=== PATIENT | female | born 1990 | race Caucasian/White ===

== ENCOUNTER 2017-11-22 10:04 | Inpatient (IN) ==
--- NOTE | 2017-11-22 10:37 | Emergency Department Note ---
Disposition Clinical Impression: Suicidal ideation Disposition: Still a Patient Condition: Fair Referrals: Joon Sharma MD [Primary Care Provider] - Forms: ED Satisfaction Letter Psych HPI - General Chief Complaint: ED Psychiatric Symptoms Stated Complaint: SI Time Seen by Provider: 11/22/17 10:10 Source: patient Nursing Notes Reviewed: Yes Vital Signs Reviewed: Yes - History of Present Illness HPI Narrative: 27 YO F here for SI with history of IBS. She states she has had SI with plan since Monday. She states work has been stressful and says she had a difficult discussion with her managers a couple weeks ago. She was planning to step into traffic. She has never been formally diagnosed with or treated for a mental illness. Never seen a psychiatrist. Patient denies hurting herself in this recent episode. Patient had a similar eposide of SI 1 year ago however she did not seek medical help at that time. She has been feeling episodes of feeling down ever since she was a teenager. Denies N/V, fever, headache, CP, palpatiations, SOB or dyspnea, changes in bowel movements, changes in urination. She was admitted to ED with her sister. - Related Data Home Medications Medication Instructions Recorded Confirmed Advil 11/07/17 Previous Rx's Medication Instructions Recorded GuaiFENesin/Dextromethorphan 5 ml PO Q6HR PRN #120 syrup 11/07/17 [Robitussin/DM] Loratadine/Pseudophed (12 HR) 1 each PO BID #20 tab.er.12h 11/07/17 [Claritin D (12HR)] Allergies Allergy/AdvReac Type Severity Reaction Status Date / Time Hydromorphone [From Dilaudid] Allergy Hives Verified 11/22/17 10:07 NSAIDS (Non-Steroidal AdvReac Fatigued Verified 11/22/17 10:07 Anti-Inflamma Constitutional: Reports: as per HPI. Denies: fever, chills, weakness, night sweats Cardiovascular: Denies: chest pain, palpitations Respiratory: Denies: cough, dyspnea Gastrointestinal: Denies: abdominal pain, nausea, vomiting Genitourinary: Denies: urgency, dysuria, frequency Neurological: Denies: headache, weakness Psychiatric: Reports: depression, suicidal thoughts. Denies: anxiety, auditory hallucinations, visual hallucinations Past Medical History - Past Medical History Medical history: Reports: no medical history, other Surgical history: Reports: no surgical history, other Psychiatric history: Reports: no psych history WEATHERIZATION INSTALLER history: Reports: no WEATHERIZATION INSTALLER history - Social History Smoking Status: Never smoker Smokeless Tobacco Status: No Alcohol use: Reports: none Drug use: Reports: none Physical Exam - General Limitations: no limitations General appearance: alert, in no apparent distress - Chest Chest inspection: Present: normal inspection, symmetric chest wall rise - Respiratory Respiratory exam: Present: normal lung sounds bilaterally. Absent: respiratory distress - Cardiovascular Cardiovascular exam: Present: regular rate, normal rhythm, normal heart sounds - Neurological Exam Neurological exam: Present: alert, oriented X3 - Psychiatric Psychiatric exam: Present: depressed, anxious. Absent: agitated Course Course Narrative: 27 YO F here for SI with plan. Ordered UDS, BAL, urinalysis. Will call 1A when labs are back. - Reevaluation(s) Reevaluation #1: Patient has headache and states she usually take ibuprofen at home despite having NSAID allergy listed on chart. Will give Ibuprofen 400. Spoke to 1A and they will see her. Reevaluation #2: 1A saw patient and they will commit patient. Vital Signs Temperature 97.9 F 11/22/17 10:05 Pulse Rate 104 11/22/17 10:05 Respiratory Rate 16 11/22/17 10:05 Blood Pressure 167/110 11/22/17 10:05 O2 Sat by Pulse Oximetry 99 11/22/17 10:05 Temperature 97.6 F 11/22/17 12:13 Pulse Rate 81 11/22/17 12:13 Respiratory Rate 16 11/22/17 12:13 Blood Pressure 123/85 11/22/17 12:13 O2 Sat by Pulse Oximetry 99 11/22/17 12:13 Oxygen Delivery Oxygen Delivery Nasal Cannula Psych - MDM Narrative Medical decision making narrative: 1500 hrs.: 1A has evaluated the patient to keep her and admit her. Patient's agreement with plan. 72 hold form completed for her. Impression is suicidal ideations and depression. New-onset. - Lab Data Lab Results 11/22/17 11/22/17 11/22/17 Range/Units 10:33 10:40 11:15 Urine Color Dark Yellow (Yellow) Urine Clarity Cloudy A (Clear) Urine pH 5.0 (5.0-8.0) pH Units Ur Specific [place] > 1.030 H (1.010-1.025) Urine Protein Negative (Neg-Trace) mg/dL Urine Glucose (UA) Normal (Normal) mg/dL Urine Ketones Negative (Negative) mg/dL Urine Blood Negative (Negative) Urine Nitrite Negative (Negative) Urine Bilirubin Small H (Negative) Urine Urobilinogen Normal (Normal) mg/dL Ur Leukocyte Esterase Moderate H (Negative) Urine Microscopic RBC 3-5 H (0-3) per hpf Urine Microscopic WBC 50-100 H (0-3) per hpf Ur Squamous Epith Cells Many H (None-Few) per lpf Urine Bacteria Many H (None-Few) per hpf Urine Opiates Screen Negative (Pywxda=340) ng/mL Ur Barbiturates Screen Negative (Sjutsr=551) ng/mL Ur Phencyclidine Scrn Negative (Cutoff=25) ng/mL Ur Amphetamines Screen Negative (Nvfynu=2577) ng/mL U Benzodiazepines Scrn Negative (Zuekxp=024) ng/mL Urine Cocaine Screen Negative (Cutoff= 300) ng/mL U Marijuana (THC) Screen Negative (Cutoff = 50) ng/mL Ur Drug Screen Interp See Below Ethyl Alcohol < 10 (Less than 10) mg/dL Psychiatric Medical Clearance - Medical Clearance Checklist Medical History: No Social History Section defined Current Vitals: Last Vital Signs Temp 97.6 F 11/22/17 12:13 Pulse 81 11/22/17 12:13 Resp 16 11/22/17 12:13 BP 123/85 11/22/17 12:13 Pulse Ox 99 11/22/17 12:13 Psychiatric Lab Panel: Drug Levels and Toxicity 11/22/17 11/22/17 10:40 11:15 Urine Opiates Screen Negative Ur Barbiturates Screen Negative Ur Phencyclidine Scrn Negative Ur Amphetamines Screen Negative U Benzodiazepines Scrn Negative Urine Cocaine Screen Negative U Marijuana (THC) Screen Negative Ethyl Alcohol < 10 Abnormal Labs: Abnormal lab results Urine Clarity Cloudy (Clear) A 11/22/17 10:33 Ur Specific [place] > 1.030 (1.010-1.025) H 11/22/17 10:33 Urine Bilirubin Small (Negative) H 11/22/17 10:33 Ur Leukocyte Esterase Moderate (Negative) H 11/22/17 10:33 Urine Microscopic RBC 3-5 per hpf (0-3) H 11/22/17 10:33 Urine Microscopic WBC 50-100 per hpf (0-3) H 11/22/17 10:33 Ur Squamous Epith Cells Many per lpf (None-Few) H 11/22/17 10:33 Urine Bacteria Many per hpf (None-Few) H 11/22/17 10:33 Statement of Medical Clearance: I have evaluated the patient, reviewed diagnostic information, and certify that the patient's medical condition is sufficiently stable that transfer to the psychiatric unit does not pose a significant risk of deterioration. Attestation Statement - Attestation Attestation: This documentation is done with the assistance of Dragon dictation. Despite efforts made to ensure accuracy, there may be inaccuracies in refrigeration plant cork insulator or spelling and typographical errors. I examined this patient and my medical decision-making was reviewed with the Resident Physician. I agree with the documented findings, disposition and treatment plan as described except to the extent set forth below. Patient seen and evaluated on arrival with Dr. Valdez myself, agree with his evaluation and management plan, supervise care the patient's stay. Patient's had suicidal ideations and some depression. She is really have a plan at this time but she said she thought about jumping out in front of traffic. She is coming by family now she is tearful but is cooperative. Flat effect. We will check a urine drug screen and alcohol per psychiatric criteria and then speak with 1A for evaluation.
[2017-11-22 11:28] LABS: Bilirubin,Urine Small (Negative); Blood,Urine Negative (Negative); Clarity,Urine Cloudy (Clear); Color,Urine Dark Yellow (Yellow); Glucose,Urine (UA) Normal (Normal); Ketones,Urine Negative (Negative); Leukocyte Esterase,Urine Moderate (Negative); Nitrite,Urine Negative (Negative); Protein,Urine Negative (Neg-Trace); Specific Gravity,Urine > 1.030 (1.010-1.025); Urobilinogen,Urine Normal (Normal)
[2017-11-22 11:29] LABS: Squamous Epithelial Cell,Urine Many per lpf (None-Few); WBC,Urine 50-100 per hpf (0-3)
[2017-11-22 11:36] LABS: Amphetamine Screen,Urine Negative ng/mL (Cutoff=1000); Barbiturate Screen,Urine Negative ng/mL (Cutoff=200); Benzodiazepines Screen,Urine Negative ng/mL (Cutoff=200); Cannabinoid Screen,Urine Negative ng/mL (Cutoff = 50); Cocaine Screen,Urine Negative ng/mL (Cutoff= 300); Opiate Screen,Urine Negative ng/mL (Cutoff=300); Phencyclidine Screen,Urine Negative ng/mL (Cutoff=25)
[2017-11-22 11:47] LABS: Bacteria,Urine Many per hpf (None-Few)
[2017-11-22] MEDS ORDERED: Ibuprofen 400 MG TABLET PO ONE (12:04)
[2017-11-22] MEDS ORDERED: Haloperidol Lactate 5 MG/ML VIAL IM PRN (17:59)
[2017-11-22] MEDS ORDERED: MOM Conc 10 ML UD.LIQ PO PRN (17:59)
[2017-11-22] MEDS ORDERED: Mag Hydrox/Al Hydrox/Simeth 30 ML UDC PO PRN (17:59)
[2017-11-22] MEDS ORDERED: hydrOXYzine pamoate 25 MG CAPSULE PO PRN (17:59)
[2017-11-22] MEDS ORDERED: *HR* LORazepam 2 MG/ML VIAL IM PRN (17:59)
[2017-11-22] MEDS ORDERED: *HR* LORazepam 1 MG TABLET PO PRN (17:59)
[2017-11-22] MEDS ORDERED: Acetaminophen 325 MG TABLET PO PRN (17:59)
--- NOTE | 2017-11-23 11:14 | Psychiatry History & Physical ---
Date of Encounter: 11/23/17 Time of Encounter: 11:00 History of Present Illness Patient Stated Chief Complaint: Suicidal ideation Medicare Admission Attestation: For traditional Medicare patients the provided hospital inpatient services are reasonable and necessary and in the case of services not specified as inpatient -only under 42 CFR 419.22 (n), that they are appropriately provided as inpatient services in accordance 42 CFR 412.3. For Critical Access Hospital the patient may reasonably be expected to be discharged or transferred to a hospital within 96 hours after admission to the Critical Access Hospital. Admitted From: Emergency Dept History of Present Illness: Ms. Munroe is a 27 year old female admitted from the emergency department for suicidal ideation. Patient was thinking about walking into traffic to kill herself, and she was wishing not to wake up in the morning. She reported this feeling has been going on for about 2 or 3 weeks and recently was triggered by stress at work when she was given additional responsibilities. She reports low self-esteem and she blames herself for everything that goes wrong. She complained of poor sleep, and anxiety in public places and an anxiety in new places or situation. She denies smoking or using drugs or alcohol. She is regular churchgoer and enjoy activities at [employer]. 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 Family history is significant for mother who is bipolar and a father who is alcoholic. Patient had no previous mental health's treatment or hospitalization. Past Med Surg Social Fam HX - Past Medical History Medical history: no medical history, other - Past Psychiatric History Psychiatric history: Reports: no psych history - Past Surgical History Surgical History: no surgical history, other - Social History Smoking Status: Never smoker Smokeless Tobacco Status: No Alcohol use: none Drug use: none - Family History Mother Adopted: Yes Name: Radha Munroe Family Member Ethnicity: Non- Living Status: Still Living Hx Family Cardiac Disorders: No Hx Family Respiratory Disorders: Yes (COPD smoker) Hx Family Cancer: No Hx Family GI Disorders: No Hx Family Genitourinary Disorders: No Hx Family Endocrine Disorder: Yes (Type 2 DM) Hx Family Musculoskeletal Disorders: No Hx Family Neuromuscular Disorders: No Hx Family Neurologic Disorders: No Hx Family HEENT Disorders: No Hx Family Autoimmune Disorders: No Hx Family Reproductive Disorders: Yes (Hysterectomy) Hx Family Psychosocial Disorders: Yes (Bipolar, depression) Hx Family Medical Disorders: No Medications & Allergies Unable To Obtain [Unable to Obtain] 11/22/17 [History] 3 Allergy/AdvReac Type Severity Reaction Status Date / Time Hydromorphone [From Dilaudid] Allergy Hives Verified 11/22/17 10:07 NSAIDS (Non-Steroidal AdvReac Fatigued Verified 11/22/17 10:07 Anti-Inflamma Review of Systems Psychiatric: Reports: depression, anxiety, abnormal sleep pattern, suicidal ideation Exam - HEENT Head exam IM: Present: atraumatic Eye exam IM: Present: EOMI, normal appearance, PERRL ENT exam IM: Present: normal exam - Neurological Neurological exam: Present: CN II-XII intact - Respiratory Respiratory exam IM: Present: CTAB - GI/Abdominal GI/Abdominal exam IM: Present: normal bowel sounds, soft. Absent: tenderness - Extremities Extremities exam IM: Present: full ROM - Skin Skin exam IM: Present: dry, warm - Constitutional Vitals: Temp Pulse Resp BP Pulse Ox 97.8 F 98 20 149/89 99 11/23/17 09:00 11/23/17 09:00 11/23/17 09:00 11/23/17 09:00 11/22/17 12:13 General appearance: age & developmentally appropriate, well-groomed, well- nourished, obese - Musculoskeletal Gait: normal Station: relaxed Strength & Tone: normal for patient - Psychiatric Patient Orientation: Yes Person, Yes Time, Yes Place Level of alertness: Alert Behavior: calm, cooperative Psychomotor activity: Normal Eye Contact: Maintains Eye Contact Mood Description: Euthymic/stable Affect description: congruent with mood, full range Speech Volume: Normal Speech pattern: normal rate, normal rhythm, normal tone, fluent, spontaneous Language & Vocabulary: consistent with education Thought Process: Linear, Goal Oriented Thought Content: Yes Suicidal ideation, No Homicidal ideation, No Overt delusions, Yes Obsessive thoughts Perceptual Disturbances: No Auditory hallucinations, No Visual hallucinations Attention Span Ability: Capable of Focused Attention Memory Description: Grossly Intact Patient Reliability: Reliable Historian Fund of knowledge: Yes abstraction ability, Yes average, Yes aware of current events Intelligence Estimate: Average Judgment: Limited Insight: Partial Results - Labs Labs: Laboratory Last Values Urine Color Dark Yellow (Yellow) 11/22/17 10:33 Urine Clarity Cloudy (Clear) A 11/22/17 10:33 Urine pH 5.0 pH Units (5.0-8.0) 11/22/17 10:33 Ur Specific [place] > 1.030 (1.010-1.025) H 11/22/17 10:33 Urine Protein Negative mg/dL (Neg-Trace) 11/22/17 10:33 Urine Glucose (UA) Normal mg/dL (Normal) 11/22/17 10:33 Urine Ketones Negative mg/dL (Negative) 11/22/17 10:33 Urine Blood Negative (Negative) 11/22/17 10:33 Urine Nitrite Negative (Negative) 11/22/17 10:33 Urine Bilirubin Small (Negative) H 11/22/17 10:33 Urine Urobilinogen Normal mg/dL (Normal) 11/22/17 10:33 Ur Leukocyte Esterase Moderate (Negative) H 11/22/17 10:33 Urine Microscopic RBC 3-5 per hpf (0-3) H 11/22/17 10:33 Urine Microscopic WBC 50-100 per hpf (0-3) H 11/22/17 10:33 Ur Squamous Epith Cells Many per lpf (None-Few) H 11/22/17 10:33 Urine Bacteria Many per hpf (None-Few) H 11/22/17 10:33 Urine Opiates Screen Negative ng/mL (Hqlxog=406) 11/22/17 11:15 Ur Barbiturates Screen Negative ng/mL (Gulysl=954) 11/22/17 11:15 Ur Phencyclidine Scrn Negative ng/mL (Cutoff=25) 11/22/17 11:15 Ur Amphetamines Screen Negative ng/mL (Tjvpsm=8126) 11/22/17 11:15 U Benzodiazepines Scrn Negative ng/mL (Mxjrbh=686) 11/22/17 11:15 Urine Cocaine Screen Negative ng/mL (Cutoff= 300) 11/22/17 11:15 U Marijuana (THC) Screen Negative ng/mL (Cutoff = 50) 11/22/17 11:15 Ur Drug Screen Interp See Below 11/22/17 11:15 Ethyl Alcohol < 10 mg/dL (Less than 10) 11/22/17 10:40 Assessment and Plan (1) Suicidal ideation Current visit: Yes Status: Acute Plan: Admit inpatient for safety and stabilization, Close observation, Suicide Precautions per unit protocol, Encourage participation in unit milieu, Group Therapy, Monitor sleep, Monitor appetite Additional Plan: Citalopram 20 mg daily. Benefits side effects were discussed patient is agreeable to start and will monitor Risks, benefits, side effects, alternatives discussed w/pt: Yes Patient agreeable to treatment: Yes Estimated Length of Stay (Days): 3
[2017-11-23] MEDS: traZODone 50 MG TABLET PO PRN (20:49)
--- NOTE | 2017-11-24 11:12 | Psychiatry Progress Note ---
Date of Encounter: 11/24/17 Time of Encounter: 11:10 Subjective Interval history: Patient seen for follow-up. Case discussed with treatment team. Patient reports feeling better, reports improved sleep. She participated in groups and activities and enjoy the interaction. She tolerated medication and denied any side effects. She is motivated and interested in learning more about her treatment goals and how to prevent episodes of depression. Denied any suicidal thoughts. Review of Systems Psychiatric: Reports: depression, anxiety, abnormal sleep pattern, suicidal ideation Results - Vital Signs Vital Signs: Temp Pulse Resp BP Pulse Ox 97.3 F L 109 16 129/89 99 11/24/17 09:00 11/24/17 09:00 11/24/17 09:11/24/17 09:11/22/17 12:13 Assessment and Plan (1) Suicidal ideation Current visit: Yes Status: Acute Plan: Continue hospitalization, Close observation, Suicide Precautions per unit protocol, Encourage participation in unit milieu, Group Therapy, Monitor sleep, Monitor appetite Risks, benefits, side effects, alternatives discussed w/pt: Yes Patient agreeable to treatment: Yes Consult Discharge Plan - Plan Referrals: [facility] [Outside] - 11/30/17 8:00 am (The above appointment is with Dr. Sharma for primary health care and medication management services.) Taras Soto [Outside] - 11/28/17 10:30 am (The above appointment is with Giles Grajeda for outpatient mental health counseling services. These bring her photo ID, insurance card and medication list with you to this appointment.) Psychiatry Exam - Constitutional Vitals: Temp Pulse Resp BP Pulse Ox 97.3 F L 109 16 129/89 99 11/24/17 09:00 11/24/17 09:00 11/24/17 09:11/24/17 09:00 11/22/17 12:13 General appearance: age & developmentally appropriate, well-groomed, well- nourished, obese - Musculoskeletal Gait: normal Station: relaxed Strength & Tone: normal for patient - Psychiatric Patient Orientation: Yes Person, Yes Time, Yes Place Level of alertness: Alert Behavior: calm, cooperative, withdrawn Psychomotor activity: Normal Eye Contact: Maintains Eye Contact Mood Description: Euthymic/stable, Depressed Affect description: congruent with mood, euthymic Speech Volume: Normal Speech pattern: normal rate, normal rhythm, normal tone, fluent, limited Language & Vocabulary: consistent with education Thought Process: Linear, Goal Oriented Thought Content: No Suicidal ideation, No Homicidal ideation, No Overt delusions Perceptual Disturbances: No Auditory hallucinations, No Visual hallucinations Attention Span Ability: Capable of Focused Attention Memory Description: Grossly Intact Patient Reliability: Reliable Historian Fund of knowledge: Yes abstraction ability, Yes aware of current events Intelligence Estimate: Average Judgment: Limited Insight: Partial
[2017-11-24] MEDS: traZODone 50 MG TABLET PO PRN (20:15)
[2017-11-25 08:26] VITALS: BP 150/88
--- NOTE | 2017-11-25 08:34 | Discharge Summary ---
Date of Encounter: 11/25/17 Time of Encounter: 08:32 Diagnosis - Discharge Diagnosis (1) Major depress dis, severe Status: Acute Medications - Discharge Medications Prescriptions: Citalopram [CeleXA] 20 mg PO DAILY #7 tablet traZODone [TraZODone] 50 mg PO HS PRN #7 tablet PRN Reason: Insomnia Citalopram [CeleXA] 20 mg PO DAILY #7 tablet 11/25/17 [Rx] traZODone [TraZODone] 50 mg PO HS PRN #7 tablet 11/25/17 [Rx] 3 Allergy/AdvReac Type Severity Reaction Status Date / Time Hydromorphone [From Dilaudid] Allergy Hives Verified 11/22/17 10:07 NSAIDS (Non-Steroidal AdvReac Fatigued Verified 11/22/17 10:07 Anti-Inflamma Provider Date of admission: 11/22/17 15:16 Primary care physician: PCP NONE Discharging clinician: Dalila Ng Psychiatry Exam - Constitutional Vitals: Temp Pulse Resp BP Pulse Ox 98.6 F 81 16 150/88 99 11/25/17 08:25 11/25/17 08:25 11/25/17 08:25 11/25/17 08:25 11/22/17 12:13 General appearance: age & developmentally appropriate, well-groomed, well- nourished - Musculoskeletal Gait: normal Station: relaxed Strength & Tone: normal for patient - Psychiatric Patient Orientation: Yes Person, Yes Time, Yes Place Level of alertness: Alert Behavior: calm, cooperative Psychomotor activity: Normal Eye Contact: Maintains Eye Contact Mood Description: Euthymic/stable Affect description: congruent with mood, full range Speech Volume: Normal Speech pattern: normal rate, normal rhythm, normal tone, fluent, spontaneous Language & Vocabulary: consistent with education Thought Process: Linear, Goal Oriented Thought Content: No Suicidal ideation, No Homicidal ideation, No Overt delusions Perceptual Disturbances: No Auditory hallucinations, No Visual hallucinations Attention Span Ability: Capable of Focused Attention Memory Description: Grossly Intact Patient Reliability: Reliable Historian Fund of knowledge: Yes abstraction ability, Yes aware of current events Intelligence Estimate: Average Judgment: Fair Insight: Partial Hospital Course Hospital course: Ms. Munroe is a 27 year old female who was admitted secondary to SI. Client reports she has had a passive wish off and on for a large part of her life but that this was the first time she seriously contemplated suicide. No prior hospitalizations, suicide attempts, or linkage. Started on Celexa with positive results. Linked with services. Has follow up in place for next week. Will be living with mother who is supportive. Safety planning done. Client is denying any further thoughts of suicide. Has been social and interacting appropriately with peers on the unit. Mood stable. Bright affect. Future oriented. - Time Spent with Patient Total time spent providing and/or coordinating discharge services: Assessment and Plan - Patient/Caregiver Discharge Instructions Activity: resume usual activities as tolerated Diet: regular diet - Follow up Plan Follow up with: [facility] Shy Wade [Outside] - 11/30/17 8:00 am (The above appointment is with Dr. Sharma for primary health care and medication management services.) Taras Soto [Outside] - 11/28/17 10:30 am (The above appointment is with Giles Grajeda for outpatient mental health counseling services. These bring her photo ID, insurance card and medication list with you to this appointment.) Functional capacity at discharge: independent ambulation Overall status at discharge: Stable Disposition: Home, Self-Care Quality - Multiple Antipsychotics Patient discharged on 2 or more antipsychotic medications: No Procedures - Procedures Procedures: Medication Management, Crisis Stabilization, Supportive Therapy, Group Therapy
== END 2017-11-25 11:35 | disposition home or self-care (01) | DRG 754 ==
LOC: EMEROOARM 10:04 → 1ANU 15:16
PROVIDERS: ADMIT Psychiatry & Neurology Psychiatry; ATTEND Psychiatry & Neurology Psychiatry

== ENCOUNTER 2018-02-28 15:17 | Inpatient (IN) ==
[2018-02-28 15:59] LABS: Bilirubin,Urine Negative (Negative); Blood,Urine Negative (Negative); Clarity,Urine Cloudy (Clear); Color,Urine Yellow (Yellow); Glucose,Urine (UA) Normal (Normal); Ketones,Urine Negative (Negative); Leukocyte Esterase,Urine Large (Negative); Nitrite,Urine Negative (Negative); Protein,Urine Negative (Neg-Trace); Specific Gravity,Urine 1.025 (1.010-1.025); Urobilinogen,Urine Normal (Normal)
[2018-02-28 16:01] LABS: Bacteria,Urine Few per hpf (None-Few); Hyaline Casts,Urine None Seen per lpf (None-Few); RBC,Urine 0-3 per hpf (0-3); Squamous Epithelial Cell,Urine Many per lpf (None-Few); WBC,Urine 15-30 per hpf (0-3)
--- NOTE | 2018-02-28 16:14 | Emergency Department Note ---
Disposition Clinical Impression: Suicidal ideation Disposition: Admitted As Inpatient Condition: Fair Time of Disposition: 21:34 Psych HPI - General Chief Complaint: ED Psychiatric Symptoms Stated Complaint: SI Time Seen by Provider: 02/28/18 15:32 Source: patient Nursing Notes Reviewed: Yes Vital Signs Reviewed: Yes - History of Present Illness HPI Narrative: 27-year-old female presents from home with mother bedside for evaluation of suicidal ideation. His been worsening over the last several days. Patient does have a plan-she intends to overdose on her prescription medications. She did take her prescription medications as prescribed today; she did not take an excess or overdose of these medications prior to arrival. No alcohol or illicit substances. Patient notes that, in the past, she is had previous prolonged episodes of suicidal ideation with a plan however she has never attempted suicide because she always came to this emergency Department before things became that severe. Patient has no other complaints at this time. ROS: Positive: As above Negative: Fever, chills, nausea, vomiting, chest pains, palpitations, abdominal pain, change of bowel or bladder habits. - Related Data Home Medications Medication Instructions Recorded Confirmed HydrOXYzine Pamoate [Vistaril] 25 mg PO BID 01/31/18 02/28/18 ARIPiprazole [Abilify] 10 mg PO DAILY 02/28/18 02/28/18 Venlafaxine [Effexor] 37.5 mg PO BID 02/28/18 02/28/18 traZODone [TraZODone] 50 mg PO HS 02/28/18 02/28/18 Allergies Allergy/AdvReac Type Severity Reaction Status Date / Time Hydromorphone [From Dilaudid] Allergy Hives Verified 02/28/18 15:22 NSAIDS (Non-Steroidal AdvReac Fatigued Verified 02/28/18 15:22 Anti-Inflamma All systems ED: reviewed and negative except as stated. 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 Head: atraumatic, normocephalic Eye: normal appearance, PERRL, EOMI, no scleral icterus, no conjunctival injection ENT: mucous membranes moist, normal external ear exam Neck: normal inspection, trachea midline, full ROM Chest: normal inspection, symmetric chest rise Respiratory: Good respiratory effort. Bilateral breath sounds are clear without wheezing, crackles, or rhonchi. Cardiovascular: Regular rate and rhythm. No clicks, rubs, gallops, or murmors. Normal heart sounds. Abdomen: Bowel sounds present normoactive. Abdomen is soft, nondistended, and nontender. No guarding or rebound. No organomegaly noted. Musculoskeletal: Spontaneously moving all extremities. Skin: warm, dry, intact. Neuro: GCS 15. No focal neurologic deficits observed. Psych: Patient's affect is appropriate for situation. - General Limitations: no limitations General appearance: alert, in no apparent distress Course Course Narrative: Patient is well-appearing, pleasant, cooperative. Will attempt medical clearance. Patient is medically cleared. Mental health services was consulted and is accepting the patient. No additional recommendations at this time. Vital Signs Temperature 97.5 F L 02/28/18 15:19 Pulse Rate 90 02/28/18 15:19 Respiratory Rate 16 02/28/18 15:19 Blood Pressure 134/90 02/28/18 15:19 O2 Sat by Pulse Oximetry 98 02/28/18 15:19 Temperature 97.9 F 02/28/18 20:00 Pulse Rate 89 02/28/18 20:00 Respiratory Rate 16 02/28/18 20:00 Blood Pressure 149/93 02/28/18 20:00 O2 Sat by Pulse Oximetry 99 02/28/18 20:00 Oxygen Delivery Oxygen Delivery Room Air Psych - Lab Data Result diagrams: 02/28/18 16:06 02/28/18 16:06 Lab Results 02/28/18 02/28/18 02/28/18 Range/Units 15:44 15:44 15:44 WBC (4.3-11.1) K/mcL RBC (3.82-4.97) M/mcL Hgb (11.5-15.4) g/dL Hct (35.3-44.9) % MCV (83.0-100.0) fL MCH (28.0-33.3) pg MCHC (31.6-35.5) g/dL RDW (11.5-14.5) % Plt Count (140-400) K/mcL MPV (9.4-12.4) fL Immature Gran % (0-4) % Seg Neutrophils % % Lymphocytes % % Monocytes % % Eosinophils % % Basophils % % Neutrophils # (1.6-8.9) K/mcL Lymphocytes # (0.6-4.6) K/mcL Monocytes # (0.0-1.3) K/mcL Eosinophils # (0.0-0.6) K/mcL Basophils # (0.0-0.2) K/mcL Sodium (136-145) mEq/L Potassium (3.5-5.1) mEq/L Chloride (98-107) mEq/L Carbon Dioxide (23-29) mEq/L BUN (6-20) mg/dL Creatinine (0.60-1.20) mg/dL Est GFR ( Amer) (> 60) Est GFR (Non-Af Amer) (> 60) BUN/Creatinine Ratio (6-26) Glucose (70-105) mg/dL Calculated Osmolality (280-300) Calcium (8.6-10.3) mg/dL Urine Color Yellow (Yellow) Urine Clarity Cloudy A (Clear) Urine pH 6.0 (5.0-8.0) pH Units Ur Specific [place] 1.025 (1.010-1.025) Urine Protein Negative (Neg-Trace) mg/dL Urine Glucose (UA) Normal (Normal) mg/dL Urine Ketones Negative (Negative) mg/dL Urine Blood Negative (Negative) Urine Nitrite Negative (Negative) Urine Bilirubin Negative (Negative) Urine Urobilinogen Normal (Normal) mg/dL Ur Leukocyte Esterase Large H (Negative) Urine Microscopic RBC 0-3 (0-3) per hpf Urine Microscopic WBC 15-30 H (0-3) per hpf Ur Squamous Epith Cells Many H (None-Few) per lpf Urine Bacteria Few (None-Few) per hpf Hyaline Casts None Seen (None-Few) per lpf Urine Test Negative (Negative) Salicylates (15.0-30.0) mg/dL Urine Opiates Screen Negative (Prhwxs=675) ng/mL Acetaminophen (10-20) mcg/mL Ur Barbiturates Screen Negative (Lfhgsl=338) ng/mL Ur Phencyclidine Scrn Negative (Cutoff=25) ng/mL Ur Amphetamines Screen Negative (Wawzay=5381) ng/mL U Benzodiazepines Scrn Negative (Xzjdav=726) ng/mL Urine Cocaine Screen Negative (Cutoff= 300) ng/mL U Marijuana (THC) Screen Negative (Cutoff = 50) ng/mL Ur Drug Screen Interp See Below Ethyl Alcohol (Less than 10) mg/dL 02/28/18 02/28/18 Range/Units 16:06 16:06 WBC 5.5 (4.3-11.1) K/mcL RBC 4.47 (3.82-4.97) M/mcL Hgb 13.1 (11.5-15.4) g/dL Hct 40.0 (35.3-44.9) % MCV 89.5 (83.0-100.0) fL MCH 29.3 (28.0-33.3) pg MCHC 32.8 (31.6-35.5) g/dL RDW 13.2 (11.5-14.5) % Plt Count 258 (140-400) K/mcL MPV 10.4 (9.4-12.4) fL Immature Gran % 2.2 (0-4) % Seg Neutrophils % 43.3 % Lymphocytes % 39.4 % Monocytes % 12.4 % Eosinophils % 2.0 % Basophils % 0.7 % Neutrophils # 2.4 (1.6-8.9) K/mcL Lymphocytes # 2.2 (0.6-4.6) K/mcL Monocytes # 0.7 (0.0-1.3) K/mcL Eosinophils # 0.1 (0.0-0.6) K/mcL Basophils # 0.0 (0.0-0.2) K/mcL Sodium 138 (136-145) mEq/L Potassium 3.8 (3.5-5.1) mEq/L Chloride 107 (98-107) mEq/L Carbon Dioxide 24 (23-29) mEq/L BUN 12 (6-20) mg/dL Creatinine 0.74 (0.60-1.20) mg/dL Est GFR ( Amer) > 60 (> 60) Est GFR (Non-Af Amer) > 60 (> 60) BUN/Creatinine Ratio 16 (6-26) Glucose 81 (70-105) mg/dL Calculated Osmolality 285 (280-300) Calcium 8.8 (8.6-10.3) mg/dL Urine Color (Yellow) Urine Clarity (Clear) Urine pH (5.0-8.0) pH Units Ur Specific [place] (1.010-1.025) Urine Protein (Neg-Trace) mg/dL Urine Glucose (UA) (Normal) mg/dL Urine Ketones (Negative) mg/dL Urine Blood (Negative) Urine Nitrite (Negative) Urine Bilirubin (Negative) Urine Urobilinogen (Normal) mg/dL Ur Leukocyte Esterase (Negative) Urine Microscopic RBC (0-3) per hpf Urine Microscopic WBC (0-3) per hpf Ur Squamous Epith Cells (None-Few) per lpf Urine Bacteria (None-Few) per hpf Hyaline Casts (None-Few) per lpf Urine Test (Negative) Salicylates < 2.5 L (15.0-30.0) mg/dL Urine Opiates Screen (Pstzjb=563) ng/mL Acetaminophen < 10 L (10-20) mcg/mL Ur Barbiturates Screen (Tflfxr=692) ng/mL Ur Phencyclidine Scrn (Cutoff=25) ng/mL Ur Amphetamines Screen (Mwaxqa=5586) ng/mL U Benzodiazepines Scrn (Uvicvs=211) ng/mL Urine Cocaine Screen (Cutoff= 300) ng/mL U Marijuana (THC) Screen (Cutoff = 50) ng/mL Ur Drug Screen Interp Ethyl Alcohol < 10 (Less than 10) mg/dL Psychiatric Medical Clearance - Medical Clearance Checklist Medical History: No Social History Section defined Current Vitals: Last Vital Signs Temp 97.9 F 02/28/18 20:00 Pulse 89 02/28/18 20:00 Resp 16 02/28/18 20:00 BP 149/93 02/28/18 20:00 Pulse Ox 99 02/28/18 20:00 Psychiatric Lab Panel: Drug Levels and Toxicity 02/28/18 02/28/18 15:44 16:06 Urine Opiates Screen Negative Acetaminophen < 10 L Ur Barbiturates Screen Negative Ur Phencyclidine Scrn Negative Ur Amphetamines Screen Negative U Benzodiazepines Scrn Negative Urine Cocaine Screen Negative U Marijuana (THC) Screen Negative Ethyl Alcohol < 10 Abnormal Labs: Abnormal lab results Urine Clarity Cloudy (Clear) A 02/28/18 15:44 Ur Leukocyte Esterase Large (Negative) H 02/28/18 15:44 Urine Microscopic WBC 15-30 per hpf (0-3) H 02/28/18 15:44 Ur Squamous Epith Cells Many per lpf (None-Few) H 02/28/18 15:44 Salicylates < 2.5 mg/dL (15.0-30.0) L 02/28/18 16:06 Acetaminophen < 10 mcg/mL (10-20) L 02/28/18 16:06 Statement of Medical Clearance: I have evaluated the patient, reviewed diagnostic information, and certify that the patient's medical condition is sufficiently stable that transfer to the psychiatric unit does not pose a significant risk of deterioration.
[2018-02-28 16:23] LABS: Basophils % 0.7 %; Eosinophils # 0.1 K/mcL (0.0-0.6); Hemoglobin 13.1 g/dL (11.5-15.4); Immature Granulocytes % 2.2 % (0-4); Lymphocytes # 2.2 K/mcL (0.6-4.6); Lymphocytes % 39.4 %; Mean Corpuscular HGB Conc 32.8 g/dL (31.6-35.5); Mean Corpuscular Hemoglobin 29.3 pg (28.0-33.3); Mean Corpuscular Volume 89.5 fL (83.0-100.0); Mean Platelet Volume 10.4 fL (9.4-12.4); Monocytes # 0.7 K/mcL (0.0-1.3); Monocytes % 12.4 %; Neutrophils # 2.4 K/mcL (1.6-8.9); Platelet Count 258 K/mcL (140-400); Red Blood Count 4.47 M/mcL (3.82-4.97); Red Cell Distribution Width 13.2 % (11.5-14.5); Segmented Neutrophils % 43.3 %
[2018-02-28 16:23] LABS: Amphetamine Screen,Urine Negative ng/mL (Cutoff=1000); Barbiturate Screen,Urine Negative ng/mL (Cutoff=200); Benzodiazepines Screen,Urine Negative ng/mL (Cutoff=200); Cannabinoid Screen,Urine Negative ng/mL (Cutoff = 50); Cocaine Screen,Urine Negative ng/mL (Cutoff= 300); Opiate Screen,Urine Negative ng/mL (Cutoff=300); Phencyclidine Screen,Urine Negative ng/mL (Cutoff=25)
--- NOTE | 2018-02-28 16:41 | Emergency Department Note ---
Disposition Clinical Impression: Suicidal ideation Disposition: Still a Patient Condition: Undetermined Referrals: NONE,PCP [Primary Care Provider] - Forms: ED Satisfaction Letter General Adult HPI - General Chief complaint: ED Psychiatric Symptoms Stated complaint: SI Time Seen by Provider: 02/28/18 15:32 Source: patient Limitations: no limitations - History of Present Illness Pain Scale: 0 - Related Data Home Medications Medication Instructions Recorded Confirmed HydrOXYzine Pamoate [Vistaril] 25 mg PO BID 01/31/18 01/31/18 Previous Rx's Medication Instructions Recorded Acetaminophen [Tylenol] 500 mg PO Q6HR PRN #20 tablet 01/31/18 predniSONE [PredniSONE] 20 mg PO BID #10 tablet 01/31/18 Allergies Allergy/AdvReac Type Severity Reaction Status Date / Time Hydromorphone [From Dilaudid] Allergy Hives Verified 02/28/18 15:22 NSAIDS (Non-Steroidal AdvReac Fatigued Verified 02/28/18 15:22 Anti-Inflamma Past Medical History - Past Medical History Medical history: Reports: no medical history Surgical history: Reports: no surgical history, other Psychiatric history: Reports: anxiety, depression, previous psychiatric hospitalization 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 - Social History Smoking Status: Never smoker Smokeless Tobacco Status: No Alcohol use: Reports: none Drug use: Reports: none Physical Exam - General Limitations: no limitations General appearance: alert, in no apparent distress Course Vital Signs Temperature 97.5 F L 02/28/18 15:19 Pulse Rate 90 02/28/18 15:19 Respiratory Rate 16 02/28/18 15:19 Blood Pressure 134/90 02/28/18 15:19 O2 Sat by Pulse Oximetry 98 02/28/18 15:19 Temperature 97.5 F L 02/28/18 15:19 Pulse Rate 90 02/28/18 15:19 Respiratory Rate 16 02/28/18 15:19 Blood Pressure 134/90 02/28/18 15:19 O2 Sat by Pulse Oximetry 98 02/28/18 15:19 Oxygen Delivery Oxygen Delivery Room Air Medical Decision Making - Lab Data Result diagrams: 02/28/18 16:06 Lab Results 02/28/18 02/28/18 02/28/18 Range/Units 15:44 15:44 16:06 WBC 5.5 (4.3-11.1) K/mcL RBC 4.47 (3.82-4.97) M/mcL Hgb 13.1 (11.5-15.4) g/dL Hct 40.0 (35.3-44.9) % MCV 89.5 (83.0-100.0) fL MCH 29.3 (28.0-33.3) pg MCHC 32.8 (31.6-35.5) g/dL RDW 13.2 (11.5-14.5) % Plt Count 258 (140-400) K/mcL MPV 10.4 (9.4-12.4) fL Immature Gran % 2.2 (0-4) % Seg Neutrophils % 43.3 % Lymphocytes % 39.4 % Monocytes % 12.4 % Eosinophils % 2.0 % Basophils % 0.7 % Neutrophils # 2.4 (1.6-8.9) K/mcL Lymphocytes # 2.2 (0.6-4.6) K/mcL Monocytes # 0.7 (0.0-1.3) K/mcL Eosinophils # 0.1 (0.0-0.6) K/mcL Basophils # 0.0 (0.0-0.2) K/mcL Urine Color Yellow (Yellow) Urine Clarity Cloudy A (Clear) Urine pH 6.0 (5.0-8.0) pH Units Ur Specific [place] 1.025 (1.010-1.025) Urine Protein Negative (Neg-Trace) mg/dL Urine Glucose (UA) Normal (Normal) mg/dL Urine Ketones Negative (Negative) mg/dL Urine Blood Negative (Negative) Urine Nitrite Negative (Negative) Urine Bilirubin Negative (Negative) Urine Urobilinogen Normal (Normal) mg/dL Ur Leukocyte Esterase Large H (Negative) Urine Microscopic RBC 0-3 (0-3) per hpf Urine Microscopic WBC 15-30 H (0-3) per hpf Ur Squamous Epith Cells Many H (None-Few) per lpf Urine Bacteria Few (None-Few) per hpf Hyaline Casts None Seen (None-Few) per lpf Urine Opiates Screen Negative (Fxpjjt=313) ng/mL Ur Barbiturates Screen Negative (Eyodmu=241) ng/mL Ur Phencyclidine Scrn Negative (Cutoff=25) ng/mL Ur Amphetamines Screen Negative (Iwfdob=6325) ng/mL U Benzodiazepines Scrn Negative (Wzsfmp=841) ng/mL Urine Cocaine Screen Negative (Cutoff= 300) ng/mL U Marijuana (THC) Screen Negative (Cutoff = 50) ng/mL Ur Drug Screen Interp See Below Attestation Statement - Attestation Attestation: I examined this patient and my medical decision-making was reviewed with the Resident Physician. I agree with the documented findings, disposition and treatment plan as described except to the extent set forth below. 27-year-old female presented to the emergency room for suicidal ideation and depression. States she wanted to take pills to kill herself. She is not having these thoughts for the past couple days. She has a history of psychiatric disease. No homicidal thoughts. She states she does not want to live anymore and feels hopeless and helpless. We will check screening lab work for medical clearance as well as a urine tox screen and consult with psychiatry.
[2018-02-28 16:47] LABS: Acetaminophen < 10 mcg/mL (10-20); BUN/Creatinine Ratio 16 (6-26); Blood Urea Nitrogen 12 mg/dL (6-20); Calcium 8.8 mg/dL (8.6-10.3); Carbon Dioxide 24 mEq/L (23-29); Chloride 107 mEq/L (98-107); Ethanol < 10 mg/dL (Less than 10); Glucose 81 mg/dL (70-105); Osmolality,Calculated 285 (280-300); Potassium 3.8 mEq/L (3.5-5.1); Salicylate < 2.5 mg/dL (15.0-30.0); Sodium 138 mEq/L (136-145); eGFR For Non-African Americans > 60 (> 60)
[2018-02-28] MEDS ORDERED: *HR* LORazepam 2 MG/ML VIAL IM PRN (17:48)
[2018-02-28] MEDS ORDERED: Mag Hydrox/Al Hydrox/Simeth 30 ML UDC PO PRN (17:48)
[2018-02-28] MEDS ORDERED: hydrOXYzine pamoate 25 MG CAPSULE PO PRN (17:48)
[2018-02-28] MEDS ORDERED: *HR* LORazepam 1 MG TABLET PO PRN (17:48)
[2018-02-28] MEDS ORDERED: MOM Conc 10 ML UD.LIQ PO PRN (17:48)
[2018-02-28] MEDS ORDERED: Haloperidol Lactate 5 MG/ML VIAL IM PRN (17:48)
[2018-02-28] MEDS ORDERED: Ibuprofen 400 MG TABLET PO PRN (17:48)
--- NOTE | 2018-03-01 12:21 | Psychiatry History & Physical ---
Date of Encounter: 03/01/18 Time of Encounter: 12:15 History of Present Illness Patient Stated Chief Complaint: suicidality Medicare Admission Attestation: For traditional Medicare patients the provided hospital inpatient services are reasonable and necessary and in the case of services not specified as inpatient-only under 42 CFR 419.22 (n), that they are appropriately provided as inpatient services in accordance 42 CFR 412.3. For Critical Access Hospital the patient may reasonably be expected to be discharged or transferred to a hospital within 96 hours after admission to the Critical Access Hospital. Admitted From: Emergency Dept Plans for Post Hospital Care: Home History of Present Illness: 27-year-old female presents from home with mother bedside for evaluation of suicidal ideation. His been worsening over the last several days. Patient does have a plan-she intends to overdose on her prescription medications. She did take her prescription medications as prescribed today; she did not take an excess or overdose of these medications prior to arrival. No alcohol or illicit substances. Patient notes that, in the past, she is had previous prolonged episodes of suicidal ideation with a plan however she has never attempted suicide because she always came to this emergency Department before things became that severe. Patient has no other complaints at this time. Ms. Munroe is a 27 year old female never , with no children who presents for mood and depression to the emergency department. Pt noted thoughts that she wants to kill myself. Pt noted reports of wanting to take a knife and slashing my throat, or taking all of the pills that I own. Pt noted she felt safe and comfortable on the unit. Pt was in agreement with treatment plan. Pt noted that she is doing better today. Pt noted she slept 7 hours last night. Pt noted her appetite is reduced. Pt rated her depression a 6, on a scale of zero to ten with ten being the worst and zero being none. Pt rate her anxiety a 6, on the same scale. Pt denied any current visual or auditory hallucinations. Pt denied any thoughts to harm herself or anyone else. Pt noted she has her mom home in [place], [place]. Pt noted that her highest level of education is a [employer] Graduate. Pt noted she is currently employed at [employer]. Pt noted 2 previous inpt psychiatric hospitalizations. Pt noted two previous suicide ideation exacerbation. Pt denied any completed suicides in her family. PT noted her mother and grandmother Bipolar D/O. PT agreed to utilizing only quetiapine and lamicatal for medication management of Bipolar D/O. Pt was educated on the risks benefits and side-effects of these medications including no medication, pt was in agreement. Pt denied any hx of HIV, Hep C, TBIs or seizures. No TD noted, AIMS=0 Tobacco: Denies Alcohol: Denies Street:Denies Caffeine: 2-3 per day 1.Interval hx 2.Continue current medications 3.Review current labs 4.Pt had an opportunity to ask questions and discuss current treatment plan. 5.Supportive therapy was provided 6.Pt encouraged to consider group or individual therapy 7.Pt was in agreement with treatment plan. 8.Pt was educated on the risks benefits and side effects of current medications. 9. Start Lamictal 25 mg PO QHS with plan to titrate to 200 mg PO QHS for mood. Past Med Surg Social Fam HX - Past Medical History Medical history: no medical history - Past Psychiatric History Psychiatric history: Reports: bipolar Family psychiatric history: Yes Family History of Suicide: None - Past Surgical History Surgical History: no surgical history, other - Social History Smoking Status: Never smoker Smokeless Tobacco Status: No Alcohol use: none Drug use: none - Family History Mother Adopted: [place]: sherri Munroe Family Member Ethnicity: Non- Living Status: Still Living Hx Family Cardiac Disorders: No Hx Family Respiratory Disorders: Yes (asthma, COPD) Hx Family Cancer: No Hx Family GI Disorders: No Hx Family Genitourinary Disorders: No Hx Family Endocrine Disorder: Yes (type 2 DM) Hx Family Musculoskeletal Disorders: No Hx Family Neuromuscular Disorders: No Hx Family Neurologic Disorders: No Hx Family HEENT Disorders: No Hx Family Autoimmune Disorders: No Hx Family Reproductive Disorders: No Hx Family Psychosocial Disorders: Yes (bipolar) Hx Family Medical Disorders: No Medications & Allergies HydrOXYzine Pamoate [Vistaril] 25 mg PO BID 01/31/18 [History] ARIPiprazole [Abilify] 10 mg PO DAILY 02/28/18 [History] Venlafaxine [Effexor] 37.5 mg PO BID 02/28/18 [History] traZODone [TraZODone] 50 mg PO HS 02/28/18 [History] Allergy/AdvReac Type Severity Reaction Status Date / Time Hydromorphone [From Dilaudid] Allergy Hives Verified 02/28/18 15:22 NSAIDS (Non-Steroidal AdvReac Fatigued Verified 02/28/18 15:22 Anti-Inflamma Review of Systems Constitutional: Denies: fever, chills, weakness, weight change Eyes: Denies: eye pain, vision change Ears, Nose, Throat: Denies: ear pain, throat pain, dental pain, hearing loss, congestion Cardiovascular: Denies: chest pain, palpitations, dyspnea on exertion Respiratory: Denies: cough, dyspnea, wheezes Gastrointestinal: Denies: abdominal pain, nausea, vomiting, diarrhea, constipation Genitourinary female: Denies: urgency, dysuria, frequency, abnormal menses, dyspareunia Musculoskeletal: Denies: joint swelling, joint pain Integumentary: Denies: rash, lesions, pruritus Neurological: Denies: headache, weakness, numbness, memory loss Psychiatric: Reports: depression Endocrine: Denies: fatigue, heat or cold intolerance Hematologic/Lymphatic: Denies: easy bruising, lymphadenopathy Allergic/Immunologic: Denies: urticaria, itchy eyes Exam - HEENT Head exam IM: Present: atraumatic Eye exam IM: Present: EOMI, normal appearance, PERRL ENT exam IM: Present: normal exam - Neurological Neurological exam: Present: CN II-XII intact - Respiratory Respiratory exam IM: Present: CTAB - GI/Abdominal GI/Abdominal exam IM: Present: normal bowel sounds, soft. Absent: tenderness - Extremities Extremities exam IM: Present: full ROM - Skin Skin exam IM: Present: dry, warm - Constitutional Vitals: Temp Pulse Resp BP Pulse Ox 97.9 F 91 16 119/83 97 03/01/18 08:10 03/01/18 08:10 03/01/18 08:10 03/01/18 08:10 03/01/18 08:10 General appearance: age & developmentally appropriate, well-groomed, well- nourished - Musculoskeletal Gait: normal Station: relaxed Strength & Tone: normal for patient - Psychiatric Patient Orientation: Yes Person, Yes Time, Yes Place Level of alertness: Alert Behavior: calm, cooperative Psychomotor activity: Normal Eye Contact: Maintains Eye Contact Mood Description: Depressed Affect description: congruent with mood, flat Speech Volume: Normal Speech pattern: normal rate, normal rhythm, normal tone, fluent, spontaneous Language & Vocabulary: consistent with education Thought Process: Linear, Goal Oriented Thought Content: Yes Suicidal ideation, No Homicidal ideation, No Overt delusions Perceptual Disturbances: No Auditory hallucinations, No Visual hallucinations Attention Span Ability: Capable of Focused Attention Memory Description: Grossly Intact Patient Reliability: Reliable Historian Fund of knowledge: Yes abstraction ability, Yes average, Yes aware of current events Intelligence Estimate: Average Judgment: Limited Insight: Partial Results - Drug Levels and Toxicology Drug Levels and Toxicology: Drug Levels and Toxicity 02/28/18 02/28/18 15:44 16:06 Urine Opiates Screen Negative Acetaminophen < 10 L Ur Barbiturates Screen Negative Ur Phencyclidine Scrn Negative Ur Amphetamines Screen Negative U Benzodiazepines Scrn Negative Urine Cocaine Screen Negative U Marijuana (THC) Screen Negative Ethyl Alcohol < 10 - Labs Labs: Laboratory Last Values WBC 5.5 K/mcL (4.3-11.1) 02/28/18 16:06 RBC 4.47 M/mcL (3.82-4.97) 02/28/18 16:06 Hgb 13.1 g/dL (11.5-15.4) 02/28/18 16:06 Hct 40.0 % (35.3-44.9) 02/28/18 16:06 MCV 89.5 fL (83.0-100.0) 02/28/18 16:06 MCH 29.3 pg (28.0-33.3) 02/28/18 16:06 MCHC 32.8 g/dL (31.6-35.5) 02/28/18 16:06 RDW 13.2 % (11.5-14.5) 02/28/18 16:06 Plt Count 258 K/mcL (140-400) 02/28/18 16:06 MPV 10.4 fL (9.4-12.4) 02/28/18 16:06 Immature Gran % 2.2 % (0-4) 02/28/18 16:06 Seg Neutrophils % 43.3 % 02/28/18 16:06 Lymphocytes % 39.4 % 02/28/18 16:06 Monocytes % 12.4 % 02/28/18 16:06 Eosinophils % 2.0 % 02/28/18 16:06 Basophils % 0.7 % 02/28/18 16:06 Neutrophils # 2.4 K/mcL (1.6-8.9) 02/28/18 16:06 Lymphocytes # 2.2 K/mcL (0.6-4.6) 02/28/18 16:06 Monocytes # 0.7 K/mcL (0.0-1.3) 02/28/18 16:06 Eosinophils # 0.1 K/mcL (0.0-0.6) 02/28/18 16:06 Basophils # 0.0 K/mcL (0.0-0.2) 02/28/18 16:06 Sodium 138 mEq/L (136-145) 02/28/18 16:06 Potassium 3.8 mEq/L (3.5-5.1) 02/28/18 16:06 Chloride 107 mEq/L (98-107) 02/28/18 16:06 Carbon Dioxide 24 mEq/L (23-29) 02/28/18 16:06 BUN 12 mg/dL (6-20) 02/28/18 16:06 Creatinine 0.74 mg/dL (0.60-1.20) 02/28/18 16:06 Est GFR ( Amer) > 60 (> 60) 02/28/18 16:06 Est GFR (Non-Af Amer) > 60 (> 60) 02/28/18 16:06 BUN/Creatinine Ratio 16 (6-26) 02/28/18 16:06 Glucose 81 mg/dL (70-105) 02/28/18 16:06 Calculated Osmolality 285 (280-300) 02/28/18 16:06 Calcium 8.8 mg/dL (8.6-10.3) 02/28/18 16:06 Urine Color Yellow (Yellow) 02/28/18 15:44 Urine Clarity Cloudy (Clear) A 02/28/18 15:44 Urine pH 6.0 pH Units (5.0-8.0) 02/28/18 15:44 Ur Specific [place] 1.025 (1.010-1.025) 02/28/18 15:44 Urine Protein Negative mg/dL (Neg-Trace) 02/28/18 15:44 Urine Glucose (UA) Normal mg/dL (Normal) 02/28/18 15:44 Urine Ketones Negative mg/dL (Negative) 02/28/18 15:44 Urine Blood Negative (Negative) 02/28/18 15:44 Urine Nitrite Negative (Negative) 02/28/18 15:44 Urine Bilirubin Negative (Negative) 02/28/18 15:44 Urine Urobilinogen Normal mg/dL (Normal) 02/28/18 15:44 Ur Leukocyte Esterase Large (Negative) H 02/28/18 15:44 Urine Microscopic RBC 0-3 per hpf (0-3) 02/28/18 15:44 Urine Microscopic WBC 15-30 per hpf (0-3) H 02/28/18 15:44 Ur Squamous Epith Cells Many per lpf (None-Few) H 02/28/18 15:44 Urine Bacteria Few per hpf (None-Few) 02/28/18 15:44 Hyaline Casts None Seen per lpf (None-Few) 02/28/18 15:44 Urine Test Negative (Negative) 02/28/18 15:44 Salicylates < 2.5 mg/dL (15.0-30.0) L 02/28/18 16:06 Urine Opiates Screen Negative ng/mL (Qpawwl=555) 02/28/18 15:44 Acetaminophen < 10 mcg/mL (10-20) L 02/28/18 16:06 Ur Barbiturates Screen Negative ng/mL (Wtkcdn=612) 02/28/18 15:44 Ur Phencyclidine Scrn Negative ng/mL (Cutoff=25) 02/28/18 15:44 Ur Amphetamines Screen Negative ng/mL (Cchthv=7396) 02/28/18 15:44 U Benzodiazepines Scrn Negative ng/mL (Qhtmne=226) 02/28/18 15:44 Urine Cocaine Screen Negative ng/mL (Cutoff= 300) 02/28/18 15:44 U Marijuana (THC) Screen Negative ng/mL (Cutoff = 50) 02/28/18 15:44 Ur Drug Screen Interp See Below 02/28/18 15:44 Ethyl Alcohol < 10 mg/dL (Less than 10) 02/28/18 16:06
[2018-03-01] MEDS: ARIPiprazole 10 MG TABLET PO SCH (13:16)
--- NOTE | 2018-03-01 14:25 | Psychiatry History & Physical ---
Date of Encounter: 03/01/18 History of Present Illness Medicare Admission Attestation: For traditional Medicare patients the provided hospital inpatient services are reasonable and necessary and in the case of services not specified as inpatient-only under 42 CFR 419.22 (n), that they are appropriately provided as inpatient services in accordance 42 CFR 412.3. For Critical Access Hospital the patient may reasonably be expected to be discharged or transferred to a hospital within 96 hours after admission to the Critical Access Hospital. History of Present Illness: Ms. Munroe is a 27 year old female Past Med Surg Social Fam HX - Past Medical History Medical history: no medical history - Past Surgical History Surgical History: no surgical history, other - Social History Smoking Status: Never smoker Smokeless Tobacco Status: No Alcohol use: none Drug use: none - Family History Mother Adopted: [place]: sherri Munroe Family Member Ethnicity: Non- Living Status: Still Living Hx Family Cardiac Disorders: No Hx Family Respiratory Disorders: Yes (asthma, COPD) Hx Family Cancer: No Hx Family GI Disorders: No Hx Family Genitourinary Disorders: No Hx Family Endocrine Disorder: Yes (type 2 DM) Hx Family Musculoskeletal Disorders: No Hx Family Neuromuscular Disorders: No Hx Family Neurologic Disorders: No Hx Family HEENT Disorders: No Hx Family Autoimmune Disorders: No Hx Family Reproductive Disorders: No Hx Family Psychosocial Disorders: Yes (bipolar) Hx Family Medical Disorders: No Medications & Allergies HydrOXYzine Pamoate [Vistaril] 25 mg PO BID 01/31/18 [History] ARIPiprazole [Abilify] 10 mg PO DAILY 02/28/18 [History] Venlafaxine [Effexor] 37.5 mg PO BID 02/28/18 [History] traZODone [TraZODone] 50 mg PO HS 02/28/18 [History] Allergy/AdvReac Type Severity Reaction Status Date / Time Hydromorphone [From Dilaudid] Allergy Hives Verified 02/28/18 15:22 NSAIDS (Non-Steroidal AdvReac Fatigued Verified 02/28/18 15:22 Anti-Inflamma Review of Systems Psychiatric: Reports: depression Exam - Constitutional Vitals: Temp Pulse Resp BP Pulse Ox 97.9 F 91 16 119/83 97 03/01/18 08:10 03/01/18 08:10 03/01/18 08:10 03/01/18 08:10 03/01/18 08:10 Results - Drug Levels and Toxicology Drug Levels and Toxicology: Drug Levels and Toxicity 02/28/18 02/28/18 15:44 16:06 Urine Opiates Screen Negative Acetaminophen < 10 L Ur Barbiturates Screen Negative Ur Phencyclidine Scrn Negative Ur Amphetamines Screen Negative U Benzodiazepines Scrn Negative Urine Cocaine Screen Negative U Marijuana (THC) Screen Negative Ethyl Alcohol < 10 - Labs Labs: Laboratory Last Values WBC 5.5 K/mcL (4.3-11.1) 02/28/18 16:06 RBC 4.47 M/mcL (3.82-4.97) 02/28/18 16:06 Hgb 13.1 g/dL (11.5-15.4) 02/28/18 16:06 Hct 40.0 % (35.3-44.9) 02/28/18 16:06 MCV 89.5 fL (83.0-100.0) 02/28/18 16:06 MCH 29.3 pg (28.0-33.3) 02/28/18 16:06 MCHC 32.8 g/dL (31.6-35.5) 02/28/18 16:06 RDW 13.2 % (11.5-14.5) 02/28/18 16:06 Plt Count 258 K/mcL (140-400) 02/28/18 16:06 MPV 10.4 fL (9.4-12.4) 02/28/18 16:06 Immature Gran % 2.2 % (0-4) 02/28/18 16:06 Seg Neutrophils % 43.3 % 02/28/18 16:06 Lymphocytes % 39.4 % 02/28/18 16:06 Monocytes % 12.4 % 02/28/18 16:06 Eosinophils % 2.0 % 02/28/18 16:06 Basophils % 0.7 % 02/28/18 16:06 Neutrophils # 2.4 K/mcL (1.6-8.9) 02/28/18 16:06 Lymphocytes # 2.2 K/mcL (0.6-4.6) 02/28/18 16:06 Monocytes # 0.7 K/mcL (0.0-1.3) 02/28/18 16:06 Eosinophils # 0.1 K/mcL (0.0-0.6) 02/28/18 16:06 Basophils # 0.0 K/mcL (0.0-0.2) 02/28/18 16:06 Sodium 138 mEq/L (136-145) 02/28/18 16:06 Potassium 3.8 mEq/L (3.5-5.1) 02/28/18 16:06 Chloride 107 mEq/L (98-107) 02/28/18 16:06 Carbon Dioxide 24 mEq/L (23-29) 02/28/18 16:06 BUN 12 mg/dL (6-20) 02/28/18 16:06 Creatinine 0.74 mg/dL (0.60-1.20) 02/28/18 16:06 Est GFR ( Amer) > 60 (> 60) 02/28/18 16:06 Est GFR (Non-Af Amer) > 60 (> 60) 02/28/18 16:06 BUN/Creatinine Ratio 16 (6-26) 02/28/18 16:06 Glucose 81 mg/dL (70-105) 02/28/18 16:06 Calculated Osmolality 285 (280-300) 02/28/18 16:06 Calcium 8.8 mg/dL (8.6-10.3) 02/28/18 16:06 Urine Color Yellow (Yellow) 02/28/18 15:44 Urine Clarity Cloudy (Clear) A 02/28/18 15:44 Urine pH 6.0 pH Units (5.0-8.0) 02/28/18 15:44 Ur Specific [place] 1.025 (1.010-1.025) 02/28/18 15:44 Urine Protein Negative mg/dL (Neg-Trace) 02/28/18 15:44 Urine Glucose (UA) Normal mg/dL (Normal) 02/28/18 15:44 Urine Ketones Negative mg/dL (Negative) 02/28/18 15:44 Urine Blood Negative (Negative) 02/28/18 15:44 Urine Nitrite Negative (Negative) 02/28/18 15:44 Urine Bilirubin Negative (Negative) 02/28/18 15:44 Urine Urobilinogen Normal mg/dL (Normal) 02/28/18 15:44 Ur Leukocyte Esterase Large (Negative) H 02/28/18 15:44 Urine Microscopic RBC 0-3 per hpf (0-3) 02/28/18 15:44 Urine Microscopic WBC 15-30 per hpf (0-3) H 02/28/18 15:44 Ur Squamous Epith Cells Many per lpf (None-Few) H 02/28/18 15:44 Urine Bacteria Few per hpf (None-Few) 02/28/18 15:44 Hyaline Casts None Seen per lpf (None-Few) 02/28/18 15:44 Urine Test Negative (Negative) 02/28/18 15:44 Salicylates < 2.5 mg/dL (15.0-30.0) L 02/28/18 16:06 Urine Opiates Screen Negative ng/mL (Faosci=662) 02/28/18 15:44 Acetaminophen < 10 mcg/mL (10-20) L 02/28/18 16:06 Ur Barbiturates Screen Negative ng/mL (Sfusmc=499) 02/28/18 15:44 Ur Phencyclidine Scrn Negative ng/mL (Cutoff=25) 02/28/18 15:44 Ur Amphetamines Screen Negative ng/mL (Sbbdpr=5694) 02/28/18 15:44 U Benzodiazepines Scrn Negative ng/mL (Zvrqzq=796) 02/28/18 15:44 Urine Cocaine Screen Negative ng/mL (Cutoff= 300) 02/28/18 15:44 U Marijuana (THC) Screen Negative ng/mL (Cutoff = 50) 02/28/18 15:44 Ur Drug Screen Interp See Below 02/28/18 15:44 Ethyl Alcohol < 10 mg/dL (Less than 10) 02/28/18 16:06 Assessment and Plan (1) Bipolar disorder Current visit: Yes Status: Acute Plan: Admit inpatient for safety and stabilization, Close observation, Suicide Precautions per unit protocol, Encourage participation in unit milieu, Group Therapy, Monitor sleep, Monitor appetite Risks, benefits, side effects, alternatives discussed w/pt: Yes Patient agreeable to treatment: Yes Plans for Post Hospital Care: at Home (2) Bipolar disorder with depression Current visit: Yes Status: Acute
[2018-03-01] MEDS: traZODone 50 MG TABLET PO PRN (20:29)
[2018-03-01] MEDS: lamoTRIgine 25 MG TABLET PO SCH (20:29)
[2018-03-02] MEDS: ARIPiprazole 10 MG TABLET PO SCH (08:37)
--- NOTE | 2018-03-02 11:26 | Psychiatry Progress Note ---
Date of Encounter: 03/02/18 Time of Encounter: 10:45 Subjective Interval history: Ms. Munroe is a 27 year old female never , with no children who presents for mood and depression to the emergency department. Pt noted she felt safe and comfortable on the unit. Pt was in agreement with treatment plan. Pt noted that she is doing better today. Pt noted she slept 8 hours last night. Pt noted her appetite is reduced. Pt rated her depression a 2, on a scale of zero to ten with ten being the worst and zero being none. Pt rate her anxiety a 4, on the same scale. Pt denied any current visual or auditory hallucinations. Pt denied any thoughts to harm herself or anyone else. Pt denied any side-effects to current medications. NO TD noted, AIMS=0 1.Interval hx 2.Continue current medications 3.Review current labs 4.Pt had an opportunity to ask questions and discuss current treatment plan. 5.Supportive therapy was provided 6.Pt encouraged to consider group or individual therapy 7.Pt was in agreement with treatment plan. 8.Pt was educated on the risks benefits and side effects of current medications. 9. Continue Lamictal 25 mg PO QHS with plan to titrate to 200 mg PO QHS for mood. 10. Coordinate D/C follow up with out mental health. 11. Consider D/C 03/03 or 03/04 once stable. Review of Systems Constitutional: Denies: fever, chills, weakness, weight change Eyes: Denies: eye pain, vision change Ears, Nose, Throat: Denies: ear pain, throat pain, dental pain, hearing loss, congestion Cardiovascular: Denies: chest pain, palpitations, dyspnea on exertion Respiratory: Denies: cough, dyspnea, wheezes Gastrointestinal: Denies: abdominal pain, nausea, vomiting, diarrhea, constipation Musculoskeletal: Denies: joint swelling, joint pain Neurological: Denies: headache, weakness, numbness, memory loss Psychiatric: Reports: depression Results - Vital Signs Vital Signs: Temp Pulse Resp BP Pulse Ox 97.7 F 84 16 118/82 100 03/02/18 09:00 03/02/18 09:00 03/02/18 09:00 03/02/18 09:00 03/01/18 20:30 Assessment and Plan (1) Bipolar disorder Current visit: Yes Status: Acute Plan: Continue hospitalization, Close observation, Suicide Precautions per unit protocol, Encourage participation in unit milieu, Group Therapy, Monitor sleep, Monitor appetite (2) Bipolar disorder with depression Current visit: Yes Status: Acute Plan: Continue hospitalization, Close observation, Suicide Precautions per unit protocol, Encourage participation in unit milieu, Group Therapy, Monitor sleep, Monitor appetite Consult Discharge Plan - Plan Referrals: NONE,PCP [Primary Care Provider] - Psychiatry Exam - Constitutional Vitals: Temp Pulse Resp BP Pulse Ox 97.7 F 84 16 118/82 100 03/02/18 09:00 03/02/18 09:00 03/02/18 09:00 03/02/18 09:00 03/01/18 20:30 General appearance: age & developmentally appropriate, well-groomed, well- nourished - Musculoskeletal Gait: normal Station: relaxed Strength & Tone: normal for patient - Psychiatric Patient Orientation: Yes Person, Yes Time, Yes Place Level of alertness: Alert Behavior: calm, cooperative Psychomotor activity: Normal Eye Contact: Maintains Eye Contact Mood Description: Euthymic/stable, Depressed Affect description: congruent with mood, full range Speech Volume: Normal Speech pattern: normal rate, normal rhythm, normal tone, fluent, spontaneous Language & Vocabulary: consistent with education Thought Process: Linear, Goal Oriented Thought Content: No Suicidal ideation, No Homicidal ideation, No Overt delusions Perceptual Disturbances: No Auditory hallucinations, No Visual hallucinations Attention Span Ability: Capable of Focused Attention Memory Description: Grossly Intact Patient Reliability: Reliable Historian Fund of knowledge: Yes abstraction ability, Yes aware of current events Intelligence Estimate: Average Judgment: Limited Insight: Partial
[2018-03-02] MEDS: traZODone 50 MG TABLET PO PRN (21:24)
[2018-03-02] MEDS: lamoTRIgine 25 MG TABLET PO SCH (21:24)
[2018-03-03] MEDS: ARIPiprazole 10 MG TABLET PO SCH (08:57)
[2018-03-03 13:02] VITALS: BP 150/89
--- NOTE | 2018-03-03 13:50 | Discharge Summary ---
Date of Encounter: 03/03/18 Time of Encounter: 13:48 Diagnosis - Discharge Diagnosis (1) Bipolar disorder with depression Status: Acute Medications - Discharge Medications Prescriptions: lamoTRIgine [Lamictal] 25 mg PO HS #30 tablet HydrOXYzine Pamoate [Vistaril] 25 mg PO BID 01/31/18 [History] traZODone [TraZODone] 50 mg PO HS 02/28/18 [History] ARIPiprazole [Abilify] 15 mg PO DAILY tablet 03/03/18 [Rx] lamoTRIgine [Lamictal] 25 mg PO HS #30 tablet 03/03/18 [Rx] Allergy/AdvReac Type Severity Reaction Status Date / Time Hydromorphone [From Dilaudid] Allergy Hives Verified 02/28/18 15:22 NSAIDS (Non-Steroidal AdvReac Fatigued Verified 02/28/18 15:22 Anti-Inflamma Results Procedures and tests throughout hospitalization: Completed Lab Orders Category Date Time Status Acetaminophen Stat Lab 02/28/18 16:06 Completed Basic Metabolic Panel Stat Lab 02/28/18 16:06 Completed Complete Blood Count [HEME] Stat Lab 02/28/18 16:06 Completed Drug Screen, Urine [UCHEM] Stat Lab 02/28/18 15:44 Completed Ethanol Stat Lab 02/28/18 16:06 Completed Test Result, Urine [URIN] Stat Lab 02/28/18 15:44 Completed Salicylate Stat Lab 02/28/18 16:06 Completed Urinalysis reflex Microscopic [URIN] Stat Lab 02/28/18 15:44 Completed Provider Date of admission: 02/28/18 17:45 Primary care physician: PCP NONE Discharging clinician: Dalila Ng Psychiatry Exam - Constitutional Vitals: Temp Pulse Resp BP Pulse Ox 98.0 F 89 16 150/89 99 03/03/18 09:00 03/03/18 09:00 03/03/18 09:00 03/03/18 09:00 03/03/18 09:00 General appearance: age & developmentally appropriate, well-groomed, well- nourished - Musculoskeletal Gait: normal Station: relaxed Strength & Tone: normal for patient - Psychiatric Patient Orientation: Yes Person, Yes Time, Yes Place Level of alertness: Alert Behavior: calm, cooperative Psychomotor activity: Normal Eye Contact: Maintains Eye Contact Mood Description: Euthymic/stable Affect description: congruent with mood, full range Speech Volume: Normal Speech pattern: normal rate, normal rhythm, normal tone, fluent, spontaneous Language & Vocabulary: consistent with education Thought Process: Linear, Goal Oriented Thought Content: No Suicidal ideation, No Homicidal ideation, No Overt delusions Perceptual Disturbances: No Auditory hallucinations, No Visual hallucinations Attention Span Ability: Capable of Focused Attention Memory Description: Grossly Intact Patient Reliability: Reliable Historian Fund of knowledge: Yes abstraction ability, Yes aware of current events Intelligence Estimate: Average Judgment: Fair Insight: Partial Hospital Course Hospital course: Ms. Munroe is a 27 year old female who was admitted secondary to SI. "My meds weren't working." Taking Effexor and Abilify at home. Effexor stopped and started on Lamictal with positive results this admission. Today client reports "I feel great." Denies SI. Bright and reactive. Lives with mother who is supportive. Follows with a counselor. PCP prescribes meds. Willing to follow with a psychiatrist but feels comfortable with PCP. Will have social work follow up with her after discharge. Looks good today. Denies SI/HI/AH/VH. - Time Spent with Patient Total time spent providing and/or coordinating discharge services: Assessment and Plan - Patient/Caregiver Discharge Instructions Activity: resume usual activities as tolerated Diet: regular diet - Follow up Plan Follow up with: NONE,PCP [Primary Care Provider] - Functional capacity at discharge: independent ambulation Overall status at discharge: Stable Disposition: Home, Self-Care Quality - Multiple Antipsychotics Patient discharged on 2 or more antipsychotic medications: No Procedures - Procedures Procedures: Medication Management, Crisis Stabilization, Supportive Therapy, Group Therapy
== END 2018-03-03 14:25 | disposition home or self-care (01) | DRG 753 ==
LOC: EMEROOARM 15:17 → 1ANU 17:45
PROVIDERS: ADMIT General Practice; ATTEND General Practice

== ENCOUNTER 2018-06-06 13:27 | Inpatient (IN) ==
--- NOTE | 2018-06-06 13:58 | Emergency Department Note ---
Disposition Clinical Impression: Depression, Bipolar disorder, Suicidal ideation Disposition: Admitted As Inpatient Condition: Fair Referrals: NONE,PCP [Primary Care Provider] - Forms: ED Satisfaction Letter Time of Disposition: 16:13 Psych HPI - General Chief Complaint: ED Psychiatric Symptoms Stated Complaint: SI Time Seen by Provider: 06/06/18 13:49 Source: patient - History of Present Illness HPI Narrative: Patient with a long-standing history of bipolar disorder, has required admission to the hospital in the past, for psychiatric management of depression and anxiety and suicidal ideation, but has never made an attempt to harm herself who presents to the emergency department requesting help for increasing thoughts of suicide, she does not have a specific plan she states that she feels anxious and depressed she states she is not sleeping very well. She is eating and drinking without difficulty she denies headache neck pain chest pain shortness breath fever chills cough sputum production bowel by nausea vomiting diarrhea urinary changes missed menstrual cycles or any other concerns. She is compliant with her medications, no recent medication changes. She states that she does feel like she needs to be admitted to the hospital. Patient denies any other acute concerns. - Related Data Home Medications Medication Instructions Recorded Confirmed ARIPiprazole [Abilify] 10 mg PO DAILY 06/06/18 06/06/18 Previous Rx's Medication Instructions Recorded lamoTRIgine [Lamictal] 25 mg PO HS #30 tablet 03/03/18 Allergies Allergy/AdvReac Type Severity Reaction Status Date / Time hydromorphone [From Dilaudid] Allergy Hives Verified 05/22/18 14:50 NSAIDS (Non-Steroidal AdvReac Fatigued Verified 05/22/18 14:50 Anti-Inflamma All systems ED: reviewed and negative except as stated. Review of Systems: As Per HPI Past Medical History - Past Medical History Medical history: Reports: hyperlipidemia, hypertension Surgical history: Reports: no surgical history, other Psychiatric history: Reports: bipolar [employer] history: Reports: no [employer] history - Social History Smoking Status: Never smoker Smokeless Tobacco Status: No Alcohol use: Reports: none Drug use: Reports: none Physical Exam - General Limitations: no limitations General appearance: alert, in no apparent distress - Head Head exam: atraumatic, normocephalic - Eye Eye exam: Present: normal appearance, PERRL - ENT ENT exam: normal exam, normal oropharynx - Neck Neck exam: Present: normal inspection, full ROM. Absent: meningismus - Chest Chest inspection: Present: normal inspection, symmetric chest wall rise - Respiratory Respiratory exam: Present: normal lung sounds bilaterally. Absent: respiratory distress - Cardiovascular Cardiovascular exam: Present: regular rate, normal rhythm, normal heart sounds - Abdominal Exam Abdominal exam: Present: soft, Non-Tender - Extremities Exam Extremities exam: Present: normal inspection, full ROM - Expanded Lower Extremity Exam Hip/Pelvis exam: Present: normal inspection Upper leg exam: Present: normal inspection Knee exam: Present: normal inspection Lower leg exam: Present: normal inspection Ankle exam: Present: normal inspection Foot/toe exam: Present: normal inspection Neurovascular/Tendon exam: Present: normal capillary refill. Absent: pulse defi cit, motor deficit, sensory deficit - Back Exam Back exam: Present: normal inspection, full ROM. Absent: tenderness, CVA tenderness (R), CVA tenderness (L), vertebral tenderness - Neurological Exam Neurological exam: Present: alert, oriented X3, CN II-XII intact, motor sensory deficit, reflexes normal - Psychiatric Psychiatric exam: Present: normal affect, depressed, anxious (Patient states she is anxious but does not appear anxious, cooperative in no acute distress). Absent: normal mood, agitated - Skin Skin exam: Present: warm, dry, intact, normal color. Absent: rash, cyanosis, diaphoresis, erythema, pallor Course - Reevaluation(s) Reevaluation #1: Laboratory studies all within acceptable limits urinalysis could be consumer sales representative of UTI, however many squamous cells and patient without urinary symptoms, we will not treat at this time. Clear for psychiatric evaluation Time: 15:04 Vital Signs Temperature 97.6 F 06/06/18 13:29 Pulse Rate 100 06/06/18 13:29 Respiratory Rate 20 06/06/18 13:29 Blood Pressure 148/96 06/06/18 13:29 O2 Sat by Pulse Oximetry 100 06/06/18 13:29 Temperature 97.6 F 06/06/18 13:29 Pulse Rate 100 06/06/18 13:29 Respiratory Rate 20 06/06/18 13:29 Blood Pressure 148/96 06/06/18 13:29 O2 Sat by Pulse Oximetry 100 06/06/18 13:29 Oxygen Delivery Oxygen Delivery Room Air Psych - MDM Narrative Medical decision making narrative: Medical screening laboratory studies were ordered. - Lab Data Result diagrams: 06/06/18 14:12 06/06/18 14:12 Lab Results 06/06/18 06/06/18 06/06/18 Range/Units 13:50 14:01 14:12 WBC 9.3 (4.3-11.1) K/mcL RBC 4.97 (3.82-4.97) M/mcL Hgb 14.7 (11.5-15.4) g/dL Hct 43.2 (35.3-44.9) % MCV 86.9 (83.0-100.0) fL MCH 29.6 (28.0-33.3) pg MCHC 34.0 (31.6-35.5) g/dL RDW 12.5 (11.5-14.5) % Plt Count 292 (140-400) K/mcL MPV 10.2 (9.4-12.4) fL Immature Gran % 0.9 (0-4) % Seg Neutrophils % 68.1 % Lymphocytes % 21.4 % Monocytes % 8.2 % Eosinophils % 1.0 % Basophils % 0.4 % Neutrophils # 6.3 (1.6-8.9) K/mcL Lymphocytes # 2.0 (0.6-4.6) K/mcL Monocytes # 0.8 (0.0-1.3) K/mcL Eosinophils # 0.1 (0.0-0.6) K/mcL Basophils # 0.0 (0.0-0.2) K/mcL Sodium (136-145) mEq/L Potassium (3.5-5.1) mEq/L Chloride (98-107) mEq/L Carbon Dioxide (23-29) mEq/L BUN (6-20) mg/dL Creatinine (0.60-1.20) mg/dL Est GFR ( Amer) (> 60) Est GFR (Non-Af Amer) (> 60) BUN/Creatinine Ratio (6-26) Glucose (70-105) mg/dL Calculated Osmolality (280-300) Calcium (8.6-10.3) mg/dL Urine Color Yellow (Yellow) Urine Clarity Cloudy A (Clear) Urine pH 6.0 (5.0-8.0) pH Units Ur Specific Coats 1.015 (1.010-1.025) Urine Protein Negative (Neg-Trace) mg/dL Urine Glucose (UA) Normal (Normal) mg/dL Urine Ketones Negative (Negative) mg/dL Urine Blood Negative (Negative) Urine Nitrite Negative (Negative) Urine Bilirubin Negative (Negative) Urine Urobilinogen Normal (Normal) mg/dL Ur Leukocyte Esterase Large H (Negative) Urine Microscopic RBC 0-3 (0-3) per hpf Urine Microscopic WBC 30-50 H (0-3) per hpf Ur Squamous Epith Cells Many H (None-Few) per lpf Urine Bacteria Few (None-Few) per hpf Hyaline Casts None Seen (None-Few) per lpf Salicylates (15.0-30.0) mg/dL Urine Opiates Screen Negative (Fkxtcw=056) ng/mL Acetaminophen (10-20) mcg/mL Ur Barbiturates Screen Negative (Hxkyzy=069) ng/mL Ur Phencyclidine Scrn Negative (Cutoff=25) ng/mL Ur Amphetamines Screen Negative (Khncoh=0098) ng/mL U Benzodiazepines Scrn Negative (Xyjuth=848) ng/mL Urine Cocaine Screen Negative (Cutoff= 300) ng/mL U Marijuana (THC) Screen Negative (Cutoff = 50) ng/mL Ur Drug Screen Interp See Below Ethyl Alcohol (Less than 10) mg/dL 06/06/18 Range/Units 14:12 WBC (4.3-11.1) K/mcL RBC (3.82-4.97) M/mcL Hgb (11.5-15.4) g/dL Hct (35.3-44.9) % MCV (83.0-100.0) fL MCH (28.0-33.3) pg MCHC (31.6-35.5) g/dL RDW (11.5-14.5) % Plt Count (140-400) K/mcL MPV (9.4-12.4) fL Immature Gran % (0-4) % Seg Neutrophils % % Lymphocytes % % Monocytes % % Eosinophils % % Basophils % % Neutrophils # (1.6-8.9) K/mcL Lymphocytes # (0.6-4.6) K/mcL Monocytes # (0.0-1.3) K/mcL Eosinophils # (0.0-0.6) K/mcL Basophils # (0.0-0.2) K/mcL Sodium 139 (136-145) mEq/L Potassium 3.5 (3.5-5.1) mEq/L Chloride 105 (98-107) mEq/L Carbon Dioxide 27 (23-29) mEq/L BUN 9 (6-20) mg/dL Creatinine 0.73 (0.60-1.20) mg/dL Est GFR ( Amer) > 60 (> 60) Est GFR (Non-Af Amer) > 60 (> 60) BUN/Creatinine Ratio 12 (6-26) Glucose 100 (70-105) mg/dL Calculated Osmolality 287 (280-300) Calcium 9.7 (8.6-10.3) mg/dL Urine Color (Yellow) Urine Clarity (Clear) Urine pH (5.0-8.0) pH Units Ur Specific Coats (1.010-1.025) Urine Protein (Neg-Trace) mg/dL Urine Glucose (UA) (Normal) mg/dL Urine Ketones (Negative) mg/dL Urine Blood (Negative) Urine Nitrite (Negative) Urine Bilirubin (Negative) Urine Urobilinogen (Normal) mg/dL Ur Leukocyte Esterase (Negative) Urine Microscopic RBC (0-3) per hpf Urine Microscopic WBC (0-3) per hpf Ur Squamous Epith Cells (None-Few) per lpf Urine Bacteria (None-Few) per hpf Hyaline Casts (None-Few) per lpf Salicylates < 2.5 L (15.0-30.0) mg/dL Urine Opiates Screen (Fneyul=874) ng/mL Acetaminophen < 10 L (10-20) mcg/mL Ur Barbiturates Screen (Erbvcq=394) ng/mL Ur Phencyclidine Scrn (Cutoff=25) ng/mL Ur Amphetamines Screen (Pdfhsa=2137) ng/mL U Benzodiazepines Scrn (Ldhnww=045) ng/mL Urine Cocaine Screen (Cutoff= 300) ng/mL U Marijuana (THC) Screen (Cutoff = 50) ng/mL Ur Drug Screen Interp Ethyl Alcohol < 10 (Less than 10) mg/dL Psychiatric Medical Clearance - Medical Clearance Checklist Medical History: No Social History Section defined Current Vitals: Last Vital Signs Temp 97.6 F 06/06/18 13:29 Pulse 100 06/06/18 13:29 Resp 20 06/06/18 13:29 BP 148/96 06/06/18 13:29 Pulse Ox 100 06/06/18 13:29 Psychiatric Lab Panel: Drug Levels and Toxicity 06/06/18 06/06/18 14:01 14:12 Urine Opiates Screen Negative Acetaminophen < 10 L Ur Barbiturates Screen Negative Ur Phencyclidine Scrn Negative Ur Amphetamines Screen Negative U Benzodiazepines Scrn Negative Urine Cocaine Screen Negative U Marijuana (THC) Screen Negative Ethyl Alcohol < 10 Abnormal Labs: Abnormal lab results Urine Clarity Cloudy (Clear) A 06/06/18 13:50 Ur Leukocyte Esterase Large (Negative) H 06/06/18 13:50 Urine Microscopic WBC 30-50 per hpf (0-3) H 06/06/18 13:50 Ur Squamous Epith Cells Many per lpf (None-Few) H 06/06/18 13:50 Salicylates < 2.5 mg/dL (15.0-30.0) L 06/06/18 14:12 Acetaminophen < 10 mcg/mL (10-20) L 06/06/18 14:12 Statement of Medical Clearance: I have evaluated the patient, reviewed diagnostic information, and certify that the patient's medical condition is sufficiently stable that transfer to the psychiatric unit does not pose a significant risk of deterioration.
[2018-06-06 14:30] LABS: Basophils % 0.4 %; Eosinophils # 0.1 K/mcL (0.0-0.6); Hematocrit 43.2 % (35.3-44.9); Hemoglobin 14.7 g/dL (11.5-15.4); Immature Granulocytes % 0.9 % (0-4); Lymphocytes % 21.4 %; Mean Corpuscular Hemoglobin 29.6 pg (28.0-33.3); Mean Corpuscular Volume 86.9 fL (83.0-100.0); Mean Platelet Volume 10.2 fL (9.4-12.4); Monocytes # 0.8 K/mcL (0.0-1.3); Monocytes % 8.2 %; Neutrophils # 6.3 K/mcL (1.6-8.9); Platelet Count 292 K/mcL (140-400); Red Blood Count 4.97 M/mcL (3.82-4.97); Red Cell Distribution Width 12.5 % (11.5-14.5); Segmented Neutrophils % 68.1 %
[2018-06-06 14:36] LABS: Bilirubin,Urine Negative (Negative); Blood,Urine Negative (Negative); Clarity,Urine Cloudy (Clear); Color,Urine Yellow (Yellow); Glucose,Urine (UA) Normal (Normal); Ketones,Urine Negative (Negative); Leukocyte Esterase,Urine Large (Negative); Nitrite,Urine Negative (Negative); Protein,Urine Negative (Neg-Trace); Specific Gravity,Urine 1.015 (1.010-1.025); Urobilinogen,Urine Normal (Normal)
[2018-06-06 14:38] LABS: Bacteria,Urine Few per hpf (None-Few); Hyaline Casts,Urine None Seen per lpf (None-Few); RBC,Urine 0-3 per hpf (0-3); Squamous Epithelial Cell,Urine Many per lpf (None-Few); WBC,Urine 30-50 per hpf (0-3)
[2018-06-06 14:49] LABS: Acetaminophen < 10 mcg/mL (10-20); BUN/Creatinine Ratio 12 (6-26); Blood Urea Nitrogen 9 mg/dL (6-20); Calcium 9.7 mg/dL (8.6-10.3); Carbon Dioxide 27 mEq/L (23-29); Chloride 105 mEq/L (98-107); Ethanol < 10 mg/dL (Less than 10); Glucose 100 mg/dL (70-105); Osmolality,Calculated 287 (280-300); Potassium 3.5 mEq/L (3.5-5.1); Salicylate < 2.5 mg/dL (15.0-30.0); Sodium 139 mEq/L (136-145); eGFR For Non-African Americans > 60 (> 60)
[2018-06-06 15:21] LABS: Amphetamine Screen,Urine Negative ng/mL (Cutoff=1000); Barbiturate Screen,Urine Negative ng/mL (Cutoff=200); Benzodiazepines Screen,Urine Negative ng/mL (Cutoff=200); Cannabinoid Screen,Urine Negative ng/mL (Cutoff = 50); Cocaine Screen,Urine Negative ng/mL (Cutoff= 300); Opiate Screen,Urine Negative ng/mL (Cutoff=300); Phencyclidine Screen,Urine Negative ng/mL (Cutoff=25)
[2018-06-06] MEDS ORDERED: MOM Conc 10 ML UD.LIQ PO PRN (16:39)
[2018-06-06] MEDS ORDERED: *HR* LORazepam 1 MG TABLET PO PRN (16:39)
[2018-06-06] MEDS ORDERED: Acetaminophen 325 MG TABLET PO PRN (16:39)
[2018-06-06] MEDS ORDERED: Haloperidol Lactate 5 MG/ML VIAL IM PRN (16:39)
[2018-06-06] MEDS ORDERED: hydrOXYzine pamoate 25 MG CAPSULE PO PRN (16:39)
[2018-06-06] MEDS ORDERED: Mag Hydrox/Al Hydrox/Simeth 30 ML UDC PO PRN (16:39)
[2018-06-06] MEDS ORDERED: *HR* LORazepam 2 MG/ML VIAL IM PRN (16:39)
[2018-06-06] MEDS ORDERED: lamoTRIgine 25 MG TABLET PO SCH (21:00)
--- NOTE | 2018-06-07 07:36 | Psychiatry History & Physical ---
Date of Encounter: 06/07/18 Time of Encounter: 07:34 History of Present Illness Patient Stated Chief Complaint: "I felt like killing myself" Medicare Admission Attestation: For traditional Medicare patients the provided hospital inpatient services are reasonable and necessary and in the case of services not specified as inpatient-only under 42 CFR 419.22 (n), that they are appropriately provided as inpatient services in accordance 42 CFR 412.3. For Critical Access Hospital the patient may reasonably be expected to be discharged or transferred to a hospital within 96 hours after admission to the Critical Access Hospital. Admitted From: Emergency Dept Plans for Post Hospital Care: Home History of Present Illness: Ms. Munroe is a 27 year old female presents from home to the ER for evaluation of suicidal ideation. Has been worsening over the last several days. Patient does have a plan-she intends to overdose on her prescription medications. She did take her prescription medications as prescribed today; she did not take an excess or overdose of these medications prior to arrival. No alcohol or illicit substances. Patient notes that, in the past, she is had previous prolonged episodes of suicidal ideation with a plan however she has never attempted suicide because she always came to this emergency Department before things became that severe. Reports sad mood, decrease interest, feelings of guilt and worthlessness, and poor sleep and appetite. She reports some anxiety but no panic attacks. She denies hallucinations. Main stress is crisis of shagufta and feeling like her 7 years with the [employer] may have been based on lies. No TD noted, AIMS=0 Tobacco: Denies Alcohol: Denies Street drugs:Denies Caffeine: 2-3 per day Past Med Surg Social Fam HX - Past Medical History Source: patient, old records reviewed Medical history: hyperlipidemia, hypertension - Past Psychiatric History Psychiatric history: Reports: bipolar, depression, previous psychiatric hospitalization Past psychiatric history details: Patient denies prior suicide attempts however she has had periods of suicidal thought exacerbation but has always come to the emergency room. She has 3 prior psychiatric hospitalizations. She is linked with outpatient counselling at [facility] and has an intake for psychiatry at [facility] [place] on 06/13 Family psychiatric history: Yes Family Psychiatric History Details: Mother and grandmother have bipolar disorder. No substance abuse issues in the family. Family History of Suicide: None - Past Surgical History Surgical History: no surgical history, other - Social History Smoking Status: Never smoker Smokeless Tobacco Status: No Alcohol use: none Drug use: none Occupational status: employed Current living situation: With Family Activity Level: Independent ambulation Recent Out of Country Travel Within the Last 8 Weeks: No Exposure or Possible Exposure to Illness During Travel: No Additional social history: Patient has never been and has no children. She has a high school education. She works in [employer]. - Family History Mother Adopted: [place]: sherri munroe Age: 54 Family Member Ethnicity: Non- Living Status: Still Living Hx Family Cardiac Disorders: No Hx Family Respiratory Disorders: Yes (asthma,copd) Hx Family Cancer: No Hx Family GI Disorders: No Hx Family Genitourinary Disorders: No Hx Family Endocrine Disorder: No Hx Family Musculoskeletal Disorders: No Hx Family Neuromuscular Disorders: No Hx Family Neurologic Disorders: No Hx Family HEENT Disorders: No Hx Family Autoimmune Disorders: No Hx Family Reproductive Disorders: No Hx Family Psychosocial Disorders: Yes Hx Family Medical Disorders: No (bipolar) Medications & Allergies lamoTRIgine [Lamictal] 25 mg PO HS #30 tablet 03/03/18 [Rx] ARIPiprazole [Abilify] 10 mg PO DAILY 06/06/18 [History] Allergy/AdvReac Type Severity Reaction Status Date / Time hydromorphone [From Dilaudid] Allergy Hives Verified 05/22/18 14:50 NSAIDS (Non-Steroidal AdvReac Fatigued Verified 05/22/18 14:50 Anti-Inflamma Review of Systems Constitutional: Denies: fever Eyes: Denies: eye pain Ears, Nose, Throat: Denies: ear pain Cardiovascular: Denies: chest pain Respiratory: Denies: cough Gastrointestinal: Denies: abdominal pain Genitourinary female: Denies: urgency Musculoskeletal: Reports: joint pain Integumentary: Denies: rash Neurological: Denies: headache Psychiatric: Reports: depression, suicidal ideation, anhedonia, hopelessness Endocrine: Reports: fatigue Hematologic/Lymphatic: Denies: easy bleeding Allergic/Immunologic: Denies: facial swelling Exam - HEENT Head exam IM: Present: atraumatic Eye exam IM: Present: normal appearance ENT exam IM: Present: mucous membranes moist - Neurological Neurological exam: Present: CN II-XII intact (Grossly), no focal deficits - Respiratory Respiratory exam IM: Absent: respiratory distress - GI/Abdominal GI/Abdominal exam IM: Present: no peritoneal signs - Extremities Extremities exam IM: Present: full ROM - Skin Skin exam IM: Absent: cyanosis - Constitutional Vitals: Temp Pulse Resp BP Pulse Ox 97.9 F 82 18 137/95 99 06/06/18 20:19 06/06/18 20:19 06/06/18 20:19 06/06/18 20:19 06/06/18 20:19 General appearance: age & developmentally appropriate - Musculoskeletal Gait: slow Station: stooped Strength & Tone: normal for patient - Psychiatric Patient Orientation: Yes Person, Yes Time, Yes Place, Yes Circumstance Level of alertness: Alert Behavior: calm Psychomotor activity: Slowed Eye Contact: Minimal Contact Mood Description: Depressed Patient description of mood: "Depressed" Affect description: dysphoric Speech Volume: Soft/Quiet Speech pattern: slowed Language & Vocabulary: consistent with education Thought Process: Intact Thought Content: Yes Suicidal ideation, No Homicidal ideation, No Overt delusions Perceptual Disturbances: No Reacting to internal stimuli, No Auditory hallucinations, No Visual hallucinations Attention Span Ability: Capable of Focused Attention, Capable of Sustained Attention Memory Description: Grossly Intact Patient Reliability: Reliable Historian Fund of knowledge: Yes abstraction ability, Yes average, Yes aware of current events Intelligence Estimate: Average Judgment: Fair Insight: Partial Results - Drug Levels and Toxicology Drug Levels and Toxicology: Drug Levels and Toxicity 06/06/18 06/06/18 14:01 14:12 Urine Opiates Screen Negative Acetaminophen < 10 L Ur Barbiturates Screen Negative Ur Phencyclidine Scrn Negative Ur Amphetamines Screen Negative U Benzodiazepines Scrn Negative Urine Cocaine Screen Negative U Marijuana (THC) Screen Negative Ethyl Alcohol < 10 - Labs Labs: Laboratory Last Values WBC 9.3 K/mcL (4.3-11.1) 06/06/18 14:12 RBC 4.97 M/mcL (3.82-4.97) 06/06/18 14:12 Hgb 14.7 g/dL (11.5-15.4) 06/06/18 14:12 Hct 43.2 % (35.3-44.9) 06/06/18 14:12 MCV 86.9 fL (83.0-100.0) 06/06/18 14:12 MCH 29.6 pg (28.0-33.3) 06/06/18 14:12 MCHC 34.0 g/dL (31.6-35.5) 06/06/18 14:12 RDW 12.5 % (11.5-14.5) 06/06/18 14:12 Plt Count 292 K/mcL (140-400) 06/06/18 14:12 MPV 10.2 fL (9.4-12.4) 06/06/18 14:12 Immature Gran % 0.9 % (0-4) 06/06/18 14:12 Seg Neutrophils % 68.1 % 06/06/18 14:12 Lymphocytes % 21.4 % 06/06/18 14:12 Monocytes % 8.2 % 06/06/18 14:12 Eosinophils % 1.0 % 06/06/18 14:12 Basophils % 0.4 % 06/06/18 14:12 Neutrophils # 6.3 K/mcL (1.6-8.9) 06/06/18 14:12 Lymphocytes # 2.0 K/mcL (0.6-4.6) 06/06/18 14:12 Monocytes # 0.8 K/mcL (0.0-1.3) 06/06/18 14:12 Eosinophils # 0.1 K/mcL (0.0-0.6) 06/06/18 14:12 Basophils # 0.0 K/mcL (0.0-0.2) 06/06/18 14:12 Sodium 139 mEq/L (136-145) 06/06/18 14:12 Potassium 3.5 mEq/L (3.5-5.1) 06/06/18 14:12 Chloride 105 mEq/L (98-107) 06/06/18 14:12 Carbon Dioxide 27 mEq/L (23-29) 06/06/18 14:12 BUN 9 mg/dL (6-20) 06/06/18 14:12 Creatinine 0.73 mg/dL (0.60-1.20) 06/06/18 14:12 Est GFR ( Amer) > 60 (> 60) 06/06/18 14:12 Est GFR (Non-Af Amer) > 60 (> 60) 06/06/18 14:12 BUN/Creatinine Ratio 12 (6-26) 06/06/18 14:12 Glucose 100 mg/dL (70-105) 06/06/18 14:12 Calculated Osmolality 287 (280-300) 06/06/18 14:12 Calcium 9.7 mg/dL (8.6-10.3) 06/06/18 14:12 Urine Color Yellow (Yellow) 06/06/18 13:50 Urine Clarity Cloudy (Clear) A 06/06/18 13:50 Urine pH 6.0 pH Units (5.0-8.0) 06/06/18 13:50 Ur Specific [place] 1.015 (1.010-1.025) 06/06/18 13:50 Urine Protein Negative mg/dL (Neg-Trace) 06/06/18 13:50 Urine Glucose (UA) Normal mg/dL (Normal) 06/06/18 13:50 Urine Ketones Negative mg/dL (Negative) 06/06/18 13:50 Urine Blood Negative (Negative) 06/06/18 13:50 Urine Nitrite Negative (Negative) 06/06/18 13:50 Urine Bilirubin Negative (Negative) 06/06/18 13:50 Urine Urobilinogen Normal mg/dL (Normal) 06/06/18 13:50 Ur Leukocyte Esterase Large (Negative) H 06/06/18 13:50 Urine Microscopic RBC 0-3 per hpf (0-3) 06/06/18 13:50 Urine Microscopic WBC 30-50 per hpf (0-3) H 06/06/18 13:50 Ur Squamous Epith Cells Many per lpf (None-Few) H 06/06/18 13:50 Urine Bacteria Few per hpf (None-Few) 06/06/18 13:50 Hyaline Casts None Seen per lpf (None-Few) 06/06/18 13:50 Salicylates < 2.5 mg/dL (15.0-30.0) L 06/06/18 14:12 Urine Opiates Screen Negative ng/mL (Cxvnfh=399) 06/06/18 14:01 Acetaminophen < 10 mcg/mL (10-20) L 06/06/18 14:12 Ur Barbiturates Screen Negative ng/mL (Pmlctc=804) 06/06/18 14:01 Ur Phencyclidine Scrn Negative ng/mL (Cutoff=25) 06/06/18 14:01 Ur Amphetamines Screen Negative ng/mL (Japxly=7446) 06/06/18 14:01 U Benzodiazepines Scrn Negative ng/mL (Ouroyj=636) 06/06/18 14:01 Urine Cocaine Screen Negative ng/mL (Cutoff= 300) 06/06/18 14:01 U Marijuana (THC) Screen Negative ng/mL (Cutoff = 50) 06/06/18 14:01 Ur Drug Screen Interp See Below 06/06/18 14:01 Ethyl Alcohol < 10 mg/dL (Less than 10) 06/06/18 14:12 Assessment and Plan (1) Bipolar disorder Current visit: Yes Status: Acute Plan: Admit inpatient for safety and stabilization, Close observation, Suicide Precautions per unit protocol, Encourage participation in unit milieu, Group Therapy, Monitor sleep, Monitor appetite Additional Plan: 1.Interval hx 2.Review any current labs 4.Pt had an opportunity to ask questions and discuss current treatment plan. 5.Supportive therapy was provided 6.Pt encouraged to consider group or individual therapy 7.Pt was in agreement with treatment plan. 8.Pt was educated on the risks benefits and side effects of current medications and alternatives as well as the risks and benefits of no medication. 9. Titrate Lamictal to 50 mg by mouth daily at bedtime for further mood stabilization. Continue Abilify 10mg qam. Risks, benefits, side effects, alternatives discussed w/pt: Yes Patient agreeable to treatment: Yes Plans for Post Hospital Care: Home Estimated Length of Stay (Days): 3 Qualifiers: Active/Remission status: currently active Current bipolar episode type: depressed Current episode severity: severe Psychotic features: without psychotic features Qualified Code(s): F31.4 - Bipolar disorder, current episode depressed, severe, without psychotic features
[2018-06-07] MEDS: ARIPiprazole 10 MG TABLET PO SCH (08:49)
[2018-06-07 12:14] LABS: Basophils # 0.1 K/mcL (0.0-0.2); Basophils % 0.8 %; Eosinophils # 0.1 K/mcL (0.0-0.6); Hematocrit 44.1 % (35.3-44.9); Hemoglobin 14.7 g/dL (11.5-15.4); Immature Granulocytes % 0.7 % (0-4); Lymphocytes # 2.4 K/mcL (0.6-4.6); Lymphocytes % 24.7 %; Mean Corpuscular HGB Conc 33.3 g/dL (31.6-35.5); Mean Corpuscular Hemoglobin 29.1 pg (28.0-33.3); Mean Corpuscular Volume 87.2 fL (83.0-100.0); Mean Platelet Volume 10.3 fL (9.4-12.4); Monocytes # 0.8 K/mcL (0.0-1.3); Monocytes % 8.4 %; Neutrophils # 6.2 K/mcL (1.6-8.9); Platelet Count 307 K/mcL (140-400); Red Blood Count 5.06 M/mcL (3.82-4.97); Red Cell Distribution Width 12.4 % (11.5-14.5); Segmented Neutrophils % 64.4 %
[2018-06-07 12:37] LABS: Alanine Aminotransferase 63 Units/L (7-52); Albumin 4.5 g/dL (3.5-5.7); Albumin/Globulin Ratio 1.6 (1.1-2.2); Alkaline Phosphatase 55 Units/L (34-104); Aspartate Amino Transferase 26 Units/L (13-39); BUN/Creatinine Ratio 12 (6-26); Bilirubin,Total 0.5 mg/dL (0.3-1.0); Blood Urea Nitrogen 10 mg/dL (6-20); Calcium 9.8 mg/dL (8.6-10.3); Carbon Dioxide 27 mEq/L (23-29); Chloride 102 mEq/L (98-107); Chol/HDL Ratio 4.5 (0-4.9); Cholesterol 175 mg/dL (< 200); Globulin 2.8 g/dL (2.4-3.5); Glucose 77 mg/dL (70-105); HDL Cholesterol 39 mg/dL (40-59); LDL Cholesterol,Calculated 96 mg/dL (0-99); Osmolality,Calculated 284 (280-300); Potassium 3.8 mEq/L (3.5-5.1); Sodium 138 mEq/L (136-145); Total Protein 7.3 g/dL (6.4-8.9); Triglycerides 202 mg/dL (< 150); eGFR For Non-African Americans > 60 (> 60)
[2018-06-07 12:48] LABS: Thyroid Stimulating Hormone 3.466 mcIU/mL (0.340-5.600)
[2018-06-07 12:59] LABS: Estimated Average Glucose 108 mg/dl; Hemoglobin A1C 5.4 %
[2018-06-07] MEDS: lamoTRIgine 25 MG TABLET PO SCH (21:31)
[2018-06-08] MEDS: ARIPiprazole 10 MG TABLET PO SCH (10:06)
--- NOTE | 2018-06-08 10:34 | Psychiatry Progress Note ---
Date of Encounter: 06/08/18 Time of Encounter: 10:31 Subjective Interval history: Patient reports she is not currently having suicidal thoughts but she still has some depression and hopelessness with decreased interest. She also reports that her anxiety has gotten particularly bad. She said that at home she uses Vistaril but that this causes her to sleep most of the day and she wants to try another option. She has spoken with her mother since being here who remained supportive. She has decided that she will speak with the grewal of her [facility] regarding her shagufta concerns. Review of Systems Psychiatric: Reports: depression, anhedonia, hopelessness Results - Vital Signs Vital Signs: Temp Pulse Resp BP Pulse Ox 98.3 F 73 18 125/89 98 06/07/18 19:55 06/07/18 19:55 06/07/18 19:55 06/07/18 19:55 06/07/18 09:00 - Labs Labs: Laboratory Results - last 24 hr 06/07/18 06/07/18 06/07/18 11:37 11:37 11:37 WBC 9.7 RBC 5.06 H Hgb 14.7 Hct 44.1 MCV 87.2 MCH 29.1 MCHC 33.3 RDW 12.4 Plt Count 307 MPV 10.3 Immature Gran % 0.7 Seg Neutrophils % 64.4 Lymphocytes % 24.7 Monocytes % 8.4 Eosinophils % 1.0 Basophils % 0.8 Neutrophils # 6.2 Lymphocytes # 2.4 Monocytes # 0.8 Eosinophils # 0.1 Basophils # 0.1 Sodium 138 Potassium 3.8 Chloride 102 Carbon Dioxide 27 BUN 10 Creatinine 0.81 Est GFR ( Amer) > 60 Est GFR (Non-Af Amer) > 60 BUN/Creatinine Ratio 12 Glucose 77 Est Mean Plasma Glucose 108 Hemoglobin A1c 5.4 Calculated Osmolality 284 Calcium 9.8 Total Bilirubin 0.5 AST 26 ALT 63 H Alkaline Phosphatase 55 Serum Total Protein 7.3 Albumin 4.5 Globulin 2.8 Albumin/Globulin Ratio 1.6 Triglycerides 202 H Cholesterol 175 LDL Cholesterol, Calc 96 VLDL Cholesterol, Calc 40 H HDL Cholesterol 39 L Cholesterol/HDL Ratio 4.5 TSH 3.466 Assessment and Plan (1) Bipolar disorder Current visit: Yes Status: Acute Plan: Continue hospitalization, Close observation, Suicide Precautions per unit protocol, Encourage participation in unit milieu, Group Therapy, Monitor sleep, Monitor appetite Additional Plan: Add BuSpar 5 mg by mouth twice a day for anxiety. Continue Lamictal. She is tolerating increase without problems. Encourage group attendance. Risks, benefits, side effects, alternatives discussed w/pt: Yes Patient agreeable to treatment: Yes Qualifiers: Active/Remission status: currently active Current bipolar episode type: depressed Current episode severity: severe Psychotic features: without psychotic features Qualified Code(s): F31.4 - Bipolar disorder, current episode depressed, severe, without psychotic features Consult Discharge Plan - Plan Referrals: [facility] [Outside] - 06/13/18 10:00 am (You have an appointment scheduled for Wednesday, June 13, 2018 at 10:[address] Justa Sales D.O. for medication management. Please give 24 hour notice if unable to keep this appointment. ) [facility] [Outside] (Message left to confirm appointment for 06/23/18 at 2:30 PM. ) Paul Araujo DO [Resident] - (Called and confirmed appointment for 06/13 at 8:00) Psychiatry Exam - Constitutional Vitals: Temp Pulse Resp BP Pulse Ox 98.3 F 73 18 125/89 98 06/07/18 19:55 06/07/18 19:55 06/07/18 19:55 06/07/18 19:55 06/07/18 09:00 General appearance: age & developmentally appropriate, obese - Musculoskeletal Gait: slow Station: stooped Strength & Tone: normal for patient - Psychiatric Patient Orientation: Yes Person, Yes Time, Yes Place, Yes Circumstance Level of alertness: Alert Behavior: calm, cooperative Psychomotor activity: Slowed Eye Contact: Minimal Contact Mood Description: Depressed Patient description of mood: "still down"" Affect description: dysphoric Speech Volume: Soft/Quiet Speech pattern: normal rate Language & Vocabulary: consistent with education Thought Process: Intact Thought Content: No Suicidal ideation Perceptual Disturbances: No Auditory hallucinations, No Visual hallucinations Attention Span Ability: Capable of Focused Attention Memory Description: Grossly Intact Patient Reliability: Reliable Historian Fund of knowledge: Yes abstraction ability, Yes aware of current events Intelligence Estimate: Average Judgment: Fair Insight: Partial
[2018-06-08] MEDS: lamoTRIgine 25 MG TABLET PO SCH (20:50)
[2018-06-09] MEDS: ARIPiprazole 10 MG TABLET PO SCH (08:47)
--- NOTE | 2018-06-09 09:02 | Discharge Summary ---
Date of Encounter: 06/09/18 Time of Encounter: 08:59 Diagnosis - Discharge Diagnosis (1) Bipolar disorder Status: Acute Qualifiers: Active/Remission status: currently active Current bipolar episode type: depressed Current episode severity: severe Psychotic features: without psychotic features Qualified Code(s): F31.4 - Bipolar disorder, current episode depressed, severe, without psychotic features Medications - Discharge Medications Prescriptions: RX: Buspirone HCl [Buspar] 5 mg PO BID #30 tablet RX: lamoTRIgine [Lamictal] 50 mg PO HS #30 tablet RX: ARIPiprazole [Abilify] 10 mg PO DAILY 06/06/18 [History] RX: Buspirone HCl [Buspar] 5 mg PO BID #30 tablet 06/09/18 [Rx] RX: lamoTRIgine [Lamictal] 50 mg PO HS #30 tablet 06/09/18 [Rx] Allergy/AdvReac Type Severity Reaction Status Date / Time hydromorphone [From Dilaudid] Allergy Hives Verified 06/07/18 08:39 NSAIDS (Non-Steroidal AdvReac Fatigued Verified 06/07/18 08:39 Anti-Inflamma Results Procedures and tests throughout hospitalization: Completed Lab Orders Category Date Time Status Acetaminophen Stat Lab 06/06/18 14:12 Completed Basic Metabolic Panel Stat Lab 06/06/18 14:12 Completed Complete Blood Count [HEME] Routine Lab 06/07/18 11:37 Completed Complete Blood Count [HEME] Stat Lab 06/06/18 14:12 Completed Comprehensive Metabolic Panel Routine Lab 06/07/18 11:37 Completed Drug Screen, Urine [UCHEM] Stat Lab 06/06/18 14:01 Completed Ethanol Stat Lab 06/06/18 14:12 Completed Hgb A1C Routine Lab 06/07/18 11:37 Completed Lipid Panel Routine Lab 06/07/18 11:37 Completed Salicylate Stat Lab 06/06/18 14:12 Completed Thyroid Stimulating Hormone Routine Lab 06/07/18 11:37 Completed Urinalysis reflex Microscopic [URIN] Stat Lab 06/06/18 13:50 Completed Provider Date of admission: 06/06/18 16:39 Primary care physician: PCP NONE Discharging clinician: Felisa Shaffer Psychiatry Exam - Constitutional Vitals: Temp Pulse Resp BP Pulse Ox 97.8 F 95 16 144/89 98 06/08/18 20:11 06/08/18 20:11 06/08/18 20:11 06/08/18 20:11 06/08/18 20:11 General appearance: age & developmentally appropriate, well-groomed, well- nourished - Musculoskeletal Gait: normal Station: relaxed Strength & Tone: normal for patient - Psychiatric Patient Orientation: Yes Person, Yes Time, Yes Place Level of alertness: Alert Behavior: calm, cooperative Psychomotor activity: Normal Eye Contact: Maintains Eye Contact Mood Description: Euthymic/stable Patient description of mood: "good" Affect description: congruent with mood, full range Speech Volume: Normal Speech pattern: normal rate, normal rhythm, normal tone, fluent, spontaneous Language & Vocabulary: consistent with education Thought Process: Linear, Goal Oriented Thought Content: No Suicidal ideation, No Homicidal ideation, No Overt delusions Perceptual Disturbances: No Auditory hallucinations, No Visual hallucinations Attention Span Ability: Capable of Focused Attention Memory Description: Grossly Intact Patient Reliability: Reliable Historian Fund of knowledge: Yes abstraction ability, Yes aware of current events Intelligence Estimate: Average Judgment: Limited Insight: Partial Hospital Course Hospital course: Ms. Munroe is a 27 year old female Who was admitted for depression and suicidal ideations and anxiety in the context of a crisis of shagufta with her [employer]. She was started on BuSpar for anxiety and her Lamictal was increased for her depression and mood. Patient was educated of diagnosis and the risk-benefit side effects of this alternative treatment options and was monitored for responsiveness and side effects. Mood anxiety sleep and appetite interest improved as did future orientation. Self- harm thoughts subsided, thinking cleared, psychosis resolved, and mood stabilized. Patient was able to attend both individual and group therapy sessions as well as meet with the psychiatrist daily and urged to discuss any medication or treatment issues or other concerns. The patient was educated primarily by verbal means about their diagnosis and manifestations in their life. The option for treatment including group and individual therapy programming was offered to the patient in addition to the use of medications with all their potential risks, benefits, and side effects as well as the risks of not taking medication and non-adhereance were discussed with the patient at length. The patient was given the opportunity to ask questions and was noted to participate in the treatment in the planning process. The patient felt ready and eager to be discharged from the inpatient psychiatric unit to continue on with treatment as an outpatient. The patient agreed that is they were safe for this disposition. The patient was considered to be able to participate in informed consent and decision making with respect to medical, legal, and financial issues of the time of discharge. At the time of discharge the patient adamantly denied any concerns for lethality including suicidal or homicidal thoughts ideations or plans and was future oriented toward ongoing mental health care and medical follow up. Time spent discussing smoking cessation with patient: 3 to 10 minutes Does patient wish to continue nicotine replacement upon disc: No (n/a) - Time Spent with Patient Total time spent providing and/or coordinating discharge services: 35 Greater than 30 minutes Specific discharge activities: Interval history reviewed. Available labs reviewed . Psychotherapy provided. Patient had an opportunity to ask questions and address concerns. Patient was in agreement with the treatment plan. The risks benefits and side effects of medications were discussed with the patient, including alternatives and treatment. The patient was educated on the abstaining from any alcohol or illicit substances, following up with all scheduled appointments, and taking all medications as prescribed. Assessment and Plan - Patient/Caregiver Discharge Instructions Activity: resume usual activities as tolerated Diet: regular diet Additional Instructions: Continue current medications. Follow up with outpatient mental health. Encourage continued therapy in a group or individual setting. The patient was discharged to home. - Follow up Plan Follow up with: [facility] [Outside] - 06/13/18 10:00 am (You have an appointment scheduled for Wednesday, June 13, 2018 at 10:00 AM with Hekie Petty.[facility] for medication management. Please give 24 hour notice if unable to keep this appointment. ) [facility] [Outside] - 06/23/18 2:30 pm (You have an appointment on 06/23/18 at 2:30 PM with Giles Grajeda.) Paul Araujo DO [Resident] - 06/13/18 8:00 am (Called and confirmed appointment for 06/13 at 8:00) Functional capacity at discharge: independent ambulation Overall status at discharge: Stable Disposition: Home, Self-Care Quality - Multiple Antipsychotics Patient discharged on 2 or more antipsychotic medications: No Procedures - Procedures Procedures: Medication Management, Crisis Stabilization, Supportive Therapy, Group Therapy, Psychoeducational Therapy
[2018-06-09 09:05] VITALS: BP 124/85
== END 2018-06-09 10:40 | disposition home or self-care (01) | DRG 753 ==
LOC: 1ANU 13:27 → EMEROOARM 13:27 → 1ANU 17:00
PROVIDERS: ADMIT Psychiatry & Neurology Psychiatry; ATTEND Psychiatry & Neurology Psychiatry

== ENCOUNTER 2018-11-21 15:24 | Inpatient (IN) ==
--- NOTE | 2018-11-21 15:44 | Emergency Department Note ---
Disposition Clinical Impression: Suicidal ideation Disposition: Admitted As Inpatient Condition: Fair Referrals: NONE,PCP [Primary Care Provider] - Time of Disposition: 17:34 Psych HPI - General Stated Complaint: Suicidal Ideations Time Seen by Provider: 11/21/18 15:33 Source: patient Mode of arrival: private vehicle Limitations: no limitations Nursing Notes Reviewed: Yes Vital Signs Reviewed: Yes - History of Present Illness HPI Narrative: 28-year-old female with previous psychiatric admission that reports she has been feeling suicidal for about a month but it got extremely bad today. Patient's plan was to take all of her medications at once. Patient states she is on several different psych medications. Patient denies any homicidal ideations, visual or auditory hallucinations. She denies any underlying medical conditions. - Related Data Home Medications Medication Instructions Recorded Confirmed ARIPiprazole [Abilify] 10 mg PO DAILY 06/06/18 06/07/18 Previous Rx's Medication Instructions Recorded Buspirone HCl [Buspar] 5 mg PO BID #30 tablet 06/09/18 lamoTRIgine [Lamictal] 50 mg PO HS #30 tablet 06/09/18 Amoxicillin 875 mg PO BID #28 tablet 07/01/18 Allergies Allergy/AdvReac Type Severity Reaction Status Date / Time hydromorphone [From Dilaudid] Allergy Hives Verified 07/01/18 16:28 NSAIDS (Non-Steroidal AdvReac Fatigued Verified 07/01/18 16:28 Anti-Inflamma Review of Systems: In addition to that documented in the HPI above, the additional ROS was obtained: Constitutional: Denies fevers or chills Eyes: Denies vision changes ENMT: Denies sore throat CV: Denies chest pain Resp: Denies SOB GI: Denies vomiting or diarrhea : Denies painful urination MSK: Denies recent trauma Skin: Denies new rashes Neuro: Denies new numbness or tingling or weakness Past Medical History - Past Medical History Attestation: Yes The following information was validated with the patient. 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 No acute distress. Well developed, well nourished. Head: atraumatic, normocephalic. ENT: No conjunctival injection, no scleral icterus. PERRLA. EOMI. Oropharynx non- erythematous. mucous membranes moist. Neuro: No focal deficits, no speech deficit, no facial droop, mentating well. BUE/BLE Str 5/5. Pulm: Lungs CTAB A/P. No wheezes, rales, ronchi. Cardio: RRR no m/r/g. Chest not tender to palpation. Abd: Soft, non-distended. Normoactive bowel sounds. Non-tender to palpation. No guarding. Non rigid. Extremities: Radial pulses 2+ zeina, dorsalis pedis/posterior tibialis 2+ zeina. No LE edema. No cyanosis, clubbing. Skin: warm, dry, intact. No rashes. Psych: Somewhat flat affect. Answers questions appropriately. Cooperative with exam. - General Limitations: no limitations General appearance: alert, in no apparent distress Course Vital Signs Temperature 98.1 F 11/21/18 15:36 Pulse Rate 92 11/21/18 15:36 Respiratory Rate 16 11/21/18 15:36 Blood Pressure 136/93 11/21/18 15:36 O2 Sat by Pulse Oximetry 98 11/21/18 15:36 Temperature 98.1 F 11/21/18 15:36 Pulse Rate 92 11/21/18 15:36 Respiratory Rate 16 11/21/18 15:36 Blood Pressure 136/93 11/21/18 15:36 O2 Sat by Pulse Oximetry 98 11/21/18 15:36 Oxygen Delivery Oxygen Delivery Room Air Psych - MDM Narrative Medical decision making narrative: 28-year-old female with a past medical history of psychiatric admissions with the last one being several months ago. Patient states she has been feeling suicidal for the last month and was planning to take all of her psych meds and effort to end her life. We will obtain medical clearance labs and call behavioral health for bedside evaluation. [place] slip was filled out and placed on her chart. Patient was placed with a sitter, her belongings were secured, and she was placed in a gown. 1736: Steven from states they will be admitting the patient to this facility. - Lab Data Result diagrams: 11/21/18 15:53 11/21/18 15:53 Lab Results 11/21/18 11/21/18 11/21/18 Range/Units 15:53 15:53 15:56 WBC 12.7 H (4.3-11.1) K/mcL RBC 4.86 (3.82-4.97) M/mcL Hgb 14.4 (11.5-15.4) g/dL Hct 43.0 (35.3-44.9) % MCV 88.5 (83.0-100.0) fL MCH 29.6 (28.0-33.3) pg MCHC 33.5 (31.6-35.5) g/dL RDW 12.9 (11.5-14.5) % Plt Count 314 (140-400) K/mcL MPV 10.4 (9.4-12.4) fL Immature Gran % 2.0 (0-4) % Seg Neutrophils % 67.2 % Lymphocytes % 21.4 % Monocytes % 7.8 % Eosinophils % 0.9 % Basophils % 0.7 % Neutrophils # 8.5 (1.6-8.9) K/mcL Lymphocytes # 2.7 (0.6-4.6) K/mcL Monocytes # 1.0 (0.0-1.3) K/mcL Eosinophils # 0.1 (0.0-0.6) K/mcL Basophils # 0.1 (0.0-0.2) K/mcL Sodium 139 (136-145) mEq/L Potassium 3.6 (3.5-5.1) mEq/L Chloride 106 (98-107) mEq/L Carbon Dioxide 25 (23-29) mEq/L BUN 8 (6-20) mg/dL Creatinine 0.63 (0.60-1.20) mg/dL Est GFR ( Amer) > 60 (> 60) Est GFR (Non-Af Amer) > 60 (> 60) BUN/Creatinine Ratio 13 (6-26) Glucose 80 (70-105) mg/dL Calculated Osmolality 285 (280-300) Calcium 9.1 (8.6-10.3) mg/dL Urine Color Yellow (Yellow) Urine Clarity Cloudy A (Clear) Urine pH 6.0 (5.0-8.0) pH Units Ur Specific [place] 1.027 H (1.010-1.025) Urine Protein Negative (Neg-Trace) mg/dL Urine Glucose (UA) Normal (Normal) mg/dL Urine Ketones Negative (Negative) mg/dL Urine Blood Negative (Negative) Urine Nitrite Negative (Negative) Urine Bilirubin Negative (Negative) Urine Urobilinogen Normal (Normal) mg/dL Ur Leukocyte Esterase Large H (Negative) Urine Microscopic RBC 5-15 H (0-3) per hpf Urine Microscopic WBC 15-30 H (0-3) per hpf Ur Squamous Epith Cells Many H (None-Few) per lpf Ur Renal Epithelial Cell Few (None-Few) per hpf Urine Bacteria Few (None-Few) per hpf Hyaline Casts None Seen (None-Few) per lpf Urine Test (Negative) Salicylates < 2.5 L (15.0-30.0) mg/dL Acetaminophen < 10 L (10-20) mcg/mL Ur Drug Screen Interp Ethyl Alcohol 10 H (Less than 10) mg/dL 11/21/18 11/21/18 Range/Units 15:56 16:02 WBC (4.3-11.1) K/mcL RBC (3.82-4.97) M/mcL Hgb (11.5-15.4) g/dL Hct (35.3-44.9) % MCV (83.0-100.0) fL MCH (28.0-33.3) pg MCHC (31.6-35.5) g/dL RDW (11.5-14.5) % Plt Count (140-400) K/mcL MPV (9.4-12.4) fL Immature Gran % (0-4) % Seg Neutrophils % % Lymphocytes % % Monocytes % % Eosinophils % % Basophils % % Neutrophils # (1.6-8.9) K/mcL Lymphocytes # (0.6-4.6) K/mcL Monocytes # (0.0-1.3) K/mcL Eosinophils # (0.0-0.6) K/mcL Basophils # (0.0-0.2) K/mcL Sodium (136-145) mEq/L Potassium (3.5-5.1) mEq/L Chloride (98-107) mEq/L Carbon Dioxide (23-29) mEq/L BUN (6-20) mg/dL Creatinine (0.60-1.20) mg/dL Est GFR ( Amer) (> 60) Est GFR (Non-Af Amer) (> 60) BUN/Creatinine Ratio (6-26) Glucose (70-105) mg/dL Calculated Osmolality (280-300) Calcium (8.6-10.3) mg/dL Urine Color (Yellow) Urine Clarity (Clear) Urine pH (5.0-8.0) pH Units Ur Specific [place] (1.010-1.025) Urine Protein (Neg-Trace) mg/dL Urine Glucose (UA) (Normal) mg/dL Urine Ketones (Negative) mg/dL Urine Blood (Negative) Urine Nitrite (Negative) Urine Bilirubin (Negative) Urine Urobilinogen (Normal) mg/dL Ur Leukocyte Esterase (Negative) Urine Microscopic RBC (0-3) per hpf Urine Microscopic WBC (0-3) per hpf Ur Squamous Epith Cells (None-Few) per lpf Ur Renal Epithelial Cell (None-Few) per hpf Urine Bacteria (None-Few) per hpf Hyaline Casts (None-Few) per lpf Urine Test Negative (Negative) Salicylates (15.0-30.0) mg/dL Acetaminophen (10-20) mcg/mL Ur Drug Screen Interp See Below Ethyl Alcohol (Less than 10) mg/dL Psychiatric Medical Clearance - Medical Clearance Checklist Medical History: No Social History Section defined Current Vitals: Last Vital Signs Temp 98.1 F 11/21/18 15:36 Pulse 92 11/21/18 15:36 Resp 16 11/21/18 15:36 BP 136/93 11/21/18 15:36 Pulse Ox 98 11/21/18 15:36 Psychiatric Lab Panel: Drug Levels and Toxicity 11/21/18 15:53 Acetaminophen < 10 L Ethyl Alcohol 10 H Abnormal Labs: Abnormal lab results WBC 12.7 K/mcL (4.3-11.1) H 11/21/18 15:53 Urine Clarity Cloudy (Clear) A 11/21/18 15:56 Ur Specific [place] 1.027 (1.010-1.025) H 11/21/18 15:56 Ur Leukocyte Esterase Large (Negative) H 11/21/18 15:56 Urine Microscopic RBC 5-15 per hpf (0-3) H 11/21/18 15:56 Urine Microscopic WBC 15-30 per hpf (0-3) H 11/21/18 15:56 Ur Squamous Epith Cells Many per lpf (None-Few) H 11/21/18 15:56 Salicylates < 2.5 mg/dL (15.0-30.0) L 11/21/18 15:53 Acetaminophen < 10 mcg/mL (10-20) L 11/21/18 15:53 Ethyl Alcohol 10 mg/dL (Less than 10) H 11/21/18 15:53 Statement of Medical Clearance: I have evaluated the patient, reviewed diagnostic information, and certify that the patient's medical condition is sufficiently stable that transfer to the psychiatric unit does not pose a significant risk of deterioration. Attestation Statement - Attestation Attestation: I, Joon Blake, examined this patient and my medical decision-making was reviewed with the DYE BOARDING MACHINE OPERATOR/PA/Advanced Practice Nurse/Resident Physician. I agree with the documented findings, disposition and treatment plan as described except to the extent set forth below. This 28-year-old female presents emergency Department with concerns of suicidal ideation. Patient states she has had plans of overdosing on her medications. Patient states she has had thoughts about overdosing the past and has previously been admitted for psychiatric issues before. Patient denies nausea, vomiting, diarrhea, chest pain, shortness of breath, palpitations. Patient will be medically cleared and behavioral evaluation. Patient will be admitted to 1A for further care and evaluation.
[2018-11-21 16:10] LABS: Bilirubin,Urine Negative (Negative); Blood,Urine Negative (Negative); Clarity,Urine Cloudy (Clear); Color,Urine Yellow (Yellow); Glucose,Urine (UA) Normal (Normal); Ketones,Urine Negative (Negative); Leukocyte Esterase,Urine Large (Negative); Nitrite,Urine Negative (Negative); Protein,Urine Negative (Neg-Trace); Specific Gravity,Urine 1.027 (1.010-1.025); Urobilinogen,Urine Normal (Normal)
[2018-11-21 16:13] LABS: Bacteria,Urine Few per hpf (None-Few); Hyaline Casts,Urine None Seen per lpf (None-Few); Squamous Epithelial Cell,Urine Many per lpf (None-Few); WBC,Urine 15-30 per hpf (0-3)
[2018-11-21 16:27] LABS: Basophils # 0.1 K/mcL (0.0-0.2); Basophils % 0.7 %; Eosinophils # 0.1 K/mcL (0.0-0.6); Eosinophils % 0.9 %; Hemoglobin 14.4 g/dL (11.5-15.4); Lymphocytes # 2.7 K/mcL (0.6-4.6); Lymphocytes % 21.4 %; Mean Corpuscular HGB Conc 33.5 g/dL (31.6-35.5); Mean Corpuscular Hemoglobin 29.6 pg (28.0-33.3); Mean Corpuscular Volume 88.5 fL (83.0-100.0); Mean Platelet Volume 10.4 fL (9.4-12.4); Monocytes % 7.8 %; Neutrophils # 8.5 K/mcL (1.6-8.9); Platelet Count 314 K/mcL (140-400); Red Blood Count 4.86 M/mcL (3.82-4.97); Red Cell Distribution Width 12.9 % (11.5-14.5); Segmented Neutrophils % 67.2 %; White Blood Count 12.7 K/mcL (4.3-11.1)
[2018-11-21 16:39] LABS: Renal Epithelial Cells,Urine Few per hpf (None-Few)
[2018-11-21 17:27] LABS: Acetaminophen < 10 mcg/mL (10-20); BUN/Creatinine Ratio 13 (6-26); Blood Urea Nitrogen 8 mg/dL (6-20); Calcium 9.1 mg/dL (8.6-10.3); Carbon Dioxide 25 mEq/L (23-29); Chloride 106 mEq/L (98-107); Ethanol 10 mg/dL (Less than 10); Glucose 80 mg/dL (70-105); Osmolality,Calculated 285 (280-300); Potassium 3.6 mEq/L (3.5-5.1); Salicylate < 2.5 mg/dL (15.0-30.0); Sodium 139 mEq/L (136-145); eGFR For African Americans > 60 (> 60); eGFR For Non-African Americans > 60 (> 60)
[2018-11-21 17:37] LABS: Amphetamine Screen,Urine Negative ng/mL (Cutoff=1000); Barbiturate Screen,Urine Negative ng/mL (Cutoff=200); Benzodiazepines Screen,Urine Negative ng/mL (Cutoff=200); Cannabinoid Screen,Urine Negative ng/mL (Cutoff = 50); Cocaine Screen,Urine Negative ng/mL (Cutoff= 300); Opiate Screen,Urine Negative ng/mL (Cutoff=300); Phencyclidine Screen,Urine Negative ng/mL (Cutoff=25)
[2018-11-21] MEDS ORDERED: Mag Hydrox/Al Hydrox/Simeth 30 ML UDC PO PRN (17:44)
[2018-11-21] MEDS ORDERED: Acetaminophen 325 MG TABLET PO PRN (17:44)
[2018-11-21] MEDS ORDERED: MOM Conc 10 ML UD.LIQ PO PRN (17:44)
[2018-11-21] MEDS ORDERED: *HR* LORazepam 2 MG/ML VIAL IM PRN (17:44)
[2018-11-21] MEDS ORDERED: Haloperidol Lactate 5 MG/ML VIAL IM PRN (17:44)
[2018-11-21] MEDS ORDERED: *HR* LORazepam 1 MG TABLET PO PRN (17:44)
[2018-11-21] MEDS: traZODone 50 MG TABLET PO PRN (21:18)
[2018-11-21] MEDS: hydrOXYzine pamoate 25 MG CAPSULE PO PRN (21:18)
--- NOTE | 2018-11-22 09:53 | Psychiatry History & Physical ---
Date of Encounter: 11/22/18 Time of Encounter: 09:40 History of Present Illness Patient Stated Chief Complaint: suicidal ideation Medicare Admission Attestation: For traditional Medicare patients the provided hospital inpatient services are reasonable and necessary and in the case of services not specified as inpatient-only under 42 CFR 419.22 (n), that they are appropriately provided as inpatient services in accordance 42 CFR 412.3. For Critical Access Hospital the patient may reasonably be expected to be discharged or transferred to a hospital within 96 hours after admission to the Critical Access Hospital. Admitted From: Home Plans for Post Hospital Care: Home History of Present Illness: Ms. Munroe is a 28 year old female who was admitted for SI. Client recently started a control pill for ovarian cysts and thinks that this new medication was the cause of her suicidal thoughts. Discussed how hormonal fluctuations are often the cause of suicidal thoughts, particularly in women. Discussed , the post period, monthly menstruation, and menopause and how these are frequently the most symptomatic times for women who are prone to depression. Starting a new hormone is no different. Discussed how there will be an adjustment period but that client's SI will likely improve once she adjusts. Also discussed that there are multiple control pills on the market with different ratios of estrogen to progesterone and that it might be trial and error to find the one with the proper balance for her. Client expressed understanding. Client has had multiple inpatient mental health admissions in the past few months for SI. Goal will be to keep this admission relatively short as client seems to like being here and creating a form of hospital dependency will not be in her favor. She is already well established with a psychiatrist and a counselor. She lives with her mother and has family support. Her mother dispenses her medications and keeps them locked up. Client denies any plans for her SI except to OD. Client denies she has ever acted on her suicidal thoughts in the past and does not have access to medications to OD now. She is physically healthy except for her ovarian cysts and has no AOD issues. Client states she is scared to go home today because of the intensity of her SI. Will plan to increase Zoloft for tonight. May not need to stay at higher dose fci once she adjusts to hormone changes. Will tentatively plan on discharge tomorrow if she is feeling better. Past Med Surg Social Fam HX - Past Medical History Medical history: no medical history - Past Psychiatric History Psychiatric history: Reports: depression, previous psychiatric hospitalization Family psychiatric history: Yes Family History of Suicide: None - Past Surgical History Surgical History: no surgical history, other - Social History Smoking Status: Never smoker Smokeless Tobacco Status: No Alcohol use: none Drug use: none - Family History Mother Adopted: [place]: Radha Age: 52 Family Member Ethnicity: Non- Living Status: Still Living Hx Family Cardiac Disorders: No Hx Family Respiratory Disorders: Yes (asthma,copd) Hx Family Cancer: No Hx Family GI Disorders: No Hx Family Genitourinary Disorders: No Hx Family Endocrine Disorder: No Hx Family Musculoskeletal Disorders: No Hx Family Neuromuscular Disorders: No Hx Family Neurologic Disorders: No Hx Family HEENT Disorders: No Hx Family Autoimmune Disorders: No Hx Family Reproductive Disorders: No Hx Family Psychosocial Disorders: Yes (Bipolar) Hx Family Medical Disorders: No Medications & Allergies ARIPiprazole [Abilify] 10 mg PO HS 06/06/18 [History] Buspirone HCl [Buspar] 7.5 mg PO BID 11/21/18 [History] Levonorgestrel-Ethin Estradiol [Vienva-28 Tablet] 1 each PO DAILY 11/21/18 [History] Sertraline [Zoloft] 100 mg PO HS 11/21/18 [History] lamoTRIgine [Lamictal Xr] 100 mg PO HS 11/21/18 [History] Allergy/AdvReac Type Severity Reaction Status Date / Time hydromorphone [From Dilaudid] Allergy Hives Verified 07/01/18 16:28 NSAIDS (Non-Steroidal AdvReac Fatigued Verified 07/01/18 16:28 Anti-Inflamma Review of Systems Constitutional: Denies: fever, chills, weakness, weight change Eyes: Denies: eye pain, vision change Ears, Nose, Throat: Denies: ear pain, throat pain, dental pain, hearing loss, congestion Cardiovascular: Denies: chest pain, palpitations, dyspnea on exertion Respiratory: Denies: cough, dyspnea, wheezes Gastrointestinal: Denies: abdominal pain, nausea, vomiting, diarrhea, constipa tion Genitourinary female: Denies: urgency, dysuria, frequency, abnormal menses, dyspareunia Musculoskeletal: Denies: joint swelling, joint pain Integumentary: Denies: rash, lesions, pruritus Neurological: Denies: headache, weakness, numbness, memory loss Endocrine: Denies: fatigue, heat or cold intolerance Hematologic/Lymphatic: Denies: easy bruising, lymphadenopathy Allergic/Immunologic: Denies: urticaria, itchy eyes Exam - HEENT Head exam IM: Present: atraumatic Eye exam IM: Present: EOMI, normal appearance, PERRL ENT exam IM: Present: normal exam - Neurological Neurological exam: Present: CN II-XII intact - Respiratory Respiratory exam IM: Present: CTAB - GI/Abdominal GI/Abdominal exam IM: Present: normal bowel sounds, soft. Absent: tenderness - Extremities Extremities exam IM: Present: full ROM - Skin Skin exam IM: Present: dry, warm - Constitutional Vitals: Temp Pulse Resp BP Pulse Ox 98.7 F 84 18 131/89 99 11/21/18 20:09 11/21/18 20:09 11/21/18 20:09 11/21/18 20:09 11/21/18 20:09 General appearance: age & developmentally appropriate, disheveled - Musculoskeletal Gait: normal Station: relaxed Strength & Tone: normal for patient - Psychiatric Patient Orientation: Yes Person, Yes Time, Yes Place Level of alertness: Alert Behavior: calm, cooperative Psychomotor activity: Normal Eye Contact: Maintains Eye Contact Mood Description: Depressed Affect description: full range Speech Volume: Normal Speech pattern: normal rate, normal rhythm, normal tone, fluent, spontaneous Language & Vocabulary: consistent with education Thought Process: Linear Thought Content: Yes Suicidal ideation, No Homicidal ideation, No Overt delusions Perceptual Disturbances: No Auditory hallucinations, No Visual hallucinations Attention Span Ability: Capable of Focused Attention Memory Description: Grossly Intact Patient Reliability: Reliable Historian Fund of knowledge: Yes abstraction ability, Yes average, Yes aware of current events Intelligence Estimate: Average Judgment: Fair Insight: Partial Results - Drug Levels and Toxicology Drug Levels and Toxicology: Drug Levels and Toxicity 11/21/18 11/21/18 15:53 16:02 Urine Opiates Screen Negative Acetaminophen < 10 L Ur Barbiturates Screen Negative Ur Phencyclidine Scrn Negative Ur Amphetamines Screen Negative U Benzodiazepines Scrn Negative Urine Cocaine Screen Negative U Marijuana (THC) Screen Negative Ethyl Alcohol 10 H - Labs Labs: Laboratory Last Values WBC 12.7 K/mcL (4.3-11.1) H 11/21/18 15:53 RBC 4.86 M/mcL (3.82-4.97) 11/21/18 15:53 Hgb 14.4 g/dL (11.5-15.4) 11/21/18 15:53 Hct 43.0 % (35.3-44.9) 11/21/18 15:53 MCV 88.5 fL (83.0-100.0) 11/21/18 15:53 MCH 29.6 pg (28.0-33.3) 11/21/18 15:53 MCHC 33.5 g/dL (31.6-35.5) 11/21/18 15:53 RDW 12.9 % (11.5-14.5) 11/21/18 15:53 Plt Count 314 K/mcL (140-400) 11/21/18 15:53 MPV 10.4 fL (9.4-12.4) 11/21/18 15:53 Immature Gran % 2.0 % (0-4) 11/21/18 15:53 Seg Neutrophils % 67.2 % 11/21/18 15:53 Lymphocytes % 21.4 % 11/21/18 15:53 Monocytes % 7.8 % 11/21/18 15:53 Eosinophils % 0.9 % 11/21/18 15:53 Basophils % 0.7 % 11/21/18 15:53 Neutrophils # 8.5 K/mcL (1.6-8.9) 11/21/18 15:53 Lymphocytes # 2.7 K/mcL (0.6-4.6) 11/21/18 15:53 Monocytes # 1.0 K/mcL (0.0-1.3) 11/21/18 15:53 Eosinophils # 0.1 K/mcL (0.0-0.6) 11/21/18 15:53 Basophils # 0.1 K/mcL (0.0-0.2) 11/21/18 15:53 Sodium 139 mEq/L (136-145) 11/21/18 15:53 Potassium 3.6 mEq/L (3.5-5.1) 11/21/18 15:53 Chloride 106 mEq/L (98-107) 11/21/18 15:53 Carbon Dioxide 25 mEq/L (23-29) 11/21/18 15:53 BUN 8 mg/dL (6-20) 11/21/18 15:53 Creatinine 0.63 mg/dL (0.60-1.20) 11/21/18 15:53 Est GFR ( Amer) > 60 (> 60) 11/21/18 15:53 Est GFR (Non-Af Amer) > 60 (> 60) 11/21/18 15:53 BUN/Creatinine Ratio 13 (6-26) 11/21/18 15:53 Glucose 80 mg/dL (70-105) 11/21/18 15:53 Calculated Osmolality 285 (280-300) 11/21/18 15:53 Calcium 9.1 mg/dL (8.6-10.3) 11/21/18 15:53 Urine Color Yellow (Yellow) 11/21/18 15:56 Urine Clarity Cloudy (Clear) A 11/21/18 15:56 Urine pH 6.0 pH Units (5.0-8.0) 11/21/18 15:56 Ur Specific [place] 1.027 (1.010-1.025) H 11/21/18 15:56 Urine Protein Negative mg/dL (Neg-Trace) 11/21/18 15:56 Urine Glucose (UA) Normal mg/dL (Normal) 11/21/18 15:56 Urine Ketones Negative mg/dL (Negative) 11/21/18 15:56 Urine Blood Negative (Negative) 11/21/18 15:56 Urine Nitrite Negative (Negative) 11/21/18 15:56 Urine Bilirubin Negative (Negative) 11/21/18 15:56 Urine Urobilinogen Normal mg/dL (Normal) 11/21/18 15:56 Ur Leukocyte Esterase Large (Negative) H 11/21/18 15:56 Urine Microscopic RBC 5-15 per hpf (0-3) H 11/21/18 15:56 Urine Microscopic WBC 15-30 per hpf (0-3) H 11/21/18 15:56 Ur Squamous Epith Cells Many per lpf (None-Few) H 11/21/18 15:56 Ur Renal Epithelial Cell Few per hpf (None-Few) 11/21/18 15:56 Urine Bacteria Few per hpf (None-Few) 11/21/18 15:56 Hyaline Casts None Seen per lpf (None-Few) 11/21/18 15:56 Urine Test Negative (Negative) 11/21/18 15:56 Salicylates < 2.5 mg/dL (15.0-30.0) L 11/21/18 15:53 Urine Opiates Screen Negative ng/mL (Jyrfww=144) 11/21/18 16:02 Ur Buprenorphine Scrn Negative ng/mL (Cutoff=5) 11/21/18 16:02 Acetaminophen < 10 mcg/mL (10-20) L 11/21/18 15:53 Ur Barbiturates Screen Negative ng/mL (Zqgvys=869) 11/21/18 16:02 Ur Phencyclidine Scrn Negative ng/mL (Cutoff=25) 11/21/18 16:02 Ur Amphetamines Screen Negative ng/mL (Fvwkag=0463) 11/21/18 16:02 U Benzodiazepines Scrn Negative ng/mL (Ldcxav=538) 11/21/18 16:02 Urine Cocaine Screen Negative ng/mL (Cutoff= 300) 11/21/18 16:02 U Marijuana (THC) Screen Negative ng/mL (Cutoff = 50) 11/21/18 16:02 Ur Drug Screen Interp See Below 11/21/18 16:02 Ethyl Alcohol 10 mg/dL (Less than 10) H 11/21/18 15:53 Assessment and Plan (1) Major depress dis, severe Current visit: No Status: Chronic Plan: Admit inpatient for safety and stabilization, Close observation, Suicide Precautions per unit protocol, Encourage participation in unit milieu, Group Therapy, Monitor sleep, Monitor appetite Risks, benefits, side effects, alternatives discussed w/pt: Yes Patient agreeable to treatment: Yes Plans for Post Hospital Care: Home Estimated Length of Stay (Days): 3
[2018-11-22] MEDS: traZODone 50 MG TABLET PO PRN (20:28)
[2018-11-22] MEDS: hydrOXYzine pamoate 25 MG CAPSULE PO PRN (20:29)
[2018-11-22] MEDS ORDERED: ARIPiprazole 10 MG TABLET PO SCH (21:00)
[2018-11-22] MEDS ORDERED: lamoTRIgine 100 MG TABLET PO SCH (21:00)
[2018-11-23] MEDS ORDERED: VIENVA PO SCH (09:00)
[2018-11-23 09:53] VITALS: BP 134/90
--- NOTE | 2018-11-23 10:29 | Discharge Summary ---
Date of Encounter: 11/23/18 Time of Encounter: 10:22 Diagnosis - Discharge Diagnosis (1) Major depress dis, severe Status: Chronic Medications - Discharge Medications Prescriptions: Sertraline [Zoloft] 150 mg PO HS #45 tablet Transmission Status: Pending to [id number] ARIPiprazole [Abilify] 10 mg PO HS 06/06/18 [History] Buspirone HCl [Buspar] 7.5 mg PO BID 11/21/18 [History] Levonorgestrel-Ethin Estradiol [Vienva-28 Tablet] 1 each PO DAILY 11/21/18 [History] lamoTRIgine [Lamictal Xr] 100 mg PO HS 11/21/18 [History] Sertraline [Zoloft] 150 mg PO HS #45 tablet 11/23/18 [Rx] Allergy/AdvReac Type Severity Reaction Status Date / Time hydromorphone [From Dilaudid] Allergy Hives Verified 07/01/18 16:28 NSAIDS (Non-Steroidal AdvReac Fatigued Verified 07/01/18 16:28 Anti-Inflamma Results Procedures and tests throughout hospitalization: Completed Lab Orders Category Date Time Status Acetaminophen Stat Lab 11/21/18 15:53 Completed Basic Metabolic Panel Stat Lab 11/21/18 15:53 Completed Complete Blood Count [HEME] Stat Lab 11/21/18 15:53 Completed Drug Screen, Urine [UCHEM] Stat Lab 11/21/18 16:02 Completed Ethanol Stat Lab 11/21/18 15:53 Completed Test Result, Urine [URIN] Stat Lab 11/21/18 15:56 Completed Salicylate Stat Lab 11/21/18 15:53 Completed Urinalysis reflex Microscopic [URIN] Stat Lab 11/21/18 15:56 Completed Provider Date of admission: 11/22/18 10:01 Primary care physician: PCP NONE Discharging clinician: Dalila Ng Psychiatry Exam - Constitutional Vitals: Temp Pulse Resp BP Pulse Ox 97.9 F 92 17 134/90 98 11/23/18 09:00 11/23/18 09:00 11/23/18 09:00 11/23/18 09:00 11/23/18 09:00 General appearance: age & developmentally appropriate, well-groomed, well- nourished - Musculoskeletal Gait: normal Station: relaxed Strength & Tone: normal for patient - Psychiatric Patient Orientation: Yes Person, Yes Time, Yes Place Level of alertness: Alert Behavior: calm, cooperative Psychomotor activity: Normal Eye Contact: Maintains Eye Contact Mood Description: Euthymic/stable Affect description: congruent with mood, full range Speech Volume: Normal Speech pattern: normal rate, normal rhythm, normal tone, fluent, spontaneous Language & Vocabulary: consistent with education Thought Process: Linear, Goal Oriented Thought Content: No Suicidal ideation, No Homicidal ideation, No Overt delusions Perceptual Disturbances: No Auditory hallucinations, No Visual hallucinations Attention Span Ability: Capable of Focused Attention Memory Description: Grossly Intact Patient Reliability: Reliable Historian Fund of knowledge: Yes abstraction ability, Yes aware of current events Intelligence Estimate: Average Judgment: Fair Insight: Partial Hospital Course Hospital course: Ms. Munroe is a 28 year old female who was admitted for SI. Client has had multiple recent admissions for SI and seems to like being in the hospital. Client states this time she feels like her SI intensified due to starting control hormones from an outpatient provider. Her Zoloft was increased for clinical effect and client states this change helped counteract the SI brought on by her hormone pills. Today client reports her mood is good. Still has occasional, fleeting SI but this seems to be baseline for her. No intent or plan and client feels comfortable she would not act on her thoughts. Has never acted on them before and states the intensity has lessened to the point she feels safe to go home. Her affect is bright and reactive today. She is future oriented. She is already linked with outpatient providers. She lives with family and they are supportive-mother keeps medications locked up and dispenses them to client. Client states she would return to hospital if she ever felt she was unsafe and historically she has always done so. On the unit she has been social and attending groups. Eating and sleeping well. Feels ready for discharge. Total time spent with client greater than 30 minutes. Patient was educated of her diagnosis and the risks, benefits, and side effects of this treatment and alternative treatment options and was monitored for responsiveness and side effects. Mood, anxiety, sleep, appetite, and interest improved, as did future orientation. Self-harm thoughts subsided, thinking cleared, psychosis resolved, and mood stabilized. Patient was able to attend both individual and group therapy sessions as well as meeting with the psychiatrist daily and urged to discuss any medication or treatment issues or other concerns. The patient was educated primarily by verbal means about their diagnosis and manifestations in their life. The option for treatment including group and individual therapy programming was offered to the patient in the use of medications with all their potential risks, benefits, and side effects were discussed with the patient at length. The patient was given the opportunity to ask questions and was noted to participate in the treatment in the planning process. The patient felt ready and eager to be discharged from the inpatient psychiatric unit to continue on with treatment as an outpatient. The patient agreed that she is safe for this disposition. The patient was considered to be able to participate in informed consent and decision making with respect to medical, legal, and financial issues of the time of discharge. At the time of discharge the patient adamantly denied any concerns for lethality including suicidal or homicidal thoughts ideations or plans and was future oriented toward ongoing mental health care, medical follow-up and sobriety. - Time Spent with Patient Total time spent providing and/or coordinating discharge services: Greater than 30 minutes Assessment and Plan - Patient/Caregiver Discharge Instructions Activity: resume usual activities as tolerated Diet: regular diet - Follow up Plan Functional capacity at discharge: independent ambulation Overall status at discharge: Stable Disposition: Home, Self-Care Quality - Multiple Antipsychotics Patient discharged on 2 or more antipsychotic medications: No Procedures - Procedures Procedures: Medication Management, Crisis Stabilization, Supportive Therapy, Group Therapy
== END 2018-11-23 15:14 | disposition home or self-care (01) | DRG 753 ==
LOC: 1ANU 15:24 → EMEROOARM 15:24 → 1ANU 18:00
PROVIDERS: ADMIT Psychiatry & Neurology Psychiatry; ATTEND Psychiatry & Neurology Psychiatry

== ENCOUNTER 2019-06-04 16:11 | Inpatient (IN) ==
[2019-06-04 16:35] LABS: Bilirubin,Urine Negative (Negative); Blood,Urine Negative (Negative); Clarity,Urine Cloudy (Clear); Color,Urine Yellow (Yellow); Glucose,Urine (UA) Normal (Normal); Ketones,Urine Negative (Negative); Leukocyte Esterase,Urine Moderate (Negative); Nitrite,Urine Negative (Negative); Protein,Urine Negative (Neg-Trace); Specific Gravity,Urine 1.022 (1.010-1.025); Urobilinogen,Urine Normal (Normal)
[2019-06-04 16:37] LABS: Bacteria,Urine Few per hpf (None-Few); Hyaline Casts,Urine None Seen per lpf (None-Few); Squamous Epithelial Cell,Urine Many per lpf (None-Few); WBC,Urine 15-30 per hpf (0-3)
[2019-06-04 16:42] LABS: Amphetamine Screen,Urine Negative ng/mL (Cutoff=1000); Barbiturate Screen,Urine Negative ng/mL (Cutoff=200); Benzodiazepines Screen,Urine Negative ng/mL (Cutoff=200); Cannabinoid Screen,Urine Negative ng/mL (Cutoff = 50); Cocaine Screen,Urine Negative ng/mL (Cutoff= 300); Opiate Screen,Urine Negative ng/mL (Cutoff=300); Phencyclidine Screen,Urine Negative ng/mL (Cutoff=25)
[2019-06-04 16:43] LABS: Basophils # 0.1 K/mcL (0.0-0.2); Basophils % 0.6 %; Eosinophils # 0.1 K/mcL (0.0-0.6); Eosinophils % 0.7 %; Hematocrit 47.2 % (35.3-44.9); Immature Granulocytes % 1.7 % (0-4); Lymphocytes # 3.5 K/mcL (0.6-4.6); Lymphocytes % 25.4 %; Mean Corpuscular HGB Conc 31.8 g/dL (31.6-35.5); Mean Corpuscular Hemoglobin 27.7 pg (28.0-33.3); Mean Corpuscular Volume 87.1 fL (83.0-100.0); Mean Platelet Volume 10.2 fL (9.4-12.4); Monocytes # 1.2 K/mcL (0.0-1.3); Monocytes % 8.5 %; Neutrophils # 8.8 K/mcL (1.6-8.9); Platelet Count 368 K/mcL (140-400); Red Blood Count 5.42 M/mcL (3.82-4.97); Red Cell Distribution Width 14.1 % (11.5-14.5); Segmented Neutrophils % 63.1 %; White Blood Count 13.9 K/mcL (4.3-11.1)
[2019-06-04 16:59] LABS: Acetaminophen < 10 mcg/mL (10-20); BUN/Creatinine Ratio 13 (6-26); Blood Urea Nitrogen 9 mg/dL (6-20); Calcium 10.1 mg/dL (8.6-10.3); Carbon Dioxide 22 mEq/L (23-29); Chloride 103 mEq/L (98-107); Ethanol < 10 mg/dL (Less than 10); Glucose 86 mg/dL (70-105); Osmolality,Calculated 282 (280-300); Potassium 3.9 mEq/L (3.5-5.1); Salicylate < 2.5 mg/dL (15.0-30.0); Sodium 137 mEq/L (136-145); eGFR For African Americans > 60 (> 60); eGFR For Non-African Americans > 60 (> 60)
[2019-06-04] MEDS ORDERED: hydrOXYzine pamoate 25 MG CAPSULE PO PRN (18:24)
[2019-06-04] MEDS ORDERED: Haloperidol Lactate 5 MG/ML VIAL IM PRN (18:24)
[2019-06-04] MEDS ORDERED: *HR* LORazepam 1 MG TABLET PO PRN (18:24)
[2019-06-04] MEDS ORDERED: haloperidoL 5 MG TABLET PO PRN (18:24)
[2019-06-04] MEDS ORDERED: Mag Hydrox/Al Hydrox/Simeth 30 ML UDC PO PRN (18:24)
[2019-06-04] MEDS ORDERED: *HR* LORazepam 2 MG/ML VIAL IM PRN (18:24)
[2019-06-04] MEDS ORDERED: Acetaminophen 325 MG TABLET PO PRN (18:24)
[2019-06-04] MEDS ORDERED: traZODone 50 MG TABLET PO PRN (18:24)
[2019-06-04] MEDS ORDERED: MOM Conc 10 ML UD.LIQ PO PRN (18:24)
[2019-06-04] MEDS: ARIPiprazole 10 MG TABLET PO SCH (20:50)
[2019-06-05] MEDS: ARIPiprazole 10 MG TABLET PO SCH (20:30)
[2019-06-06 09:41] VITALS: BP 127/87
== END 2019-06-06 11:05 | disposition home or self-care (01) | DRG 751 ==
LOC: EMEROOARM 16:11 → 1ANU 16:11
PROVIDERS: ADMIT Psychiatry & Neurology Psychiatry; ATTEND Psychiatry & Neurology Psychiatry

== ENCOUNTER 2020-06-18 09:16 | Inpatient (IN) ==
[2020-06-18 09:52] LABS: Basophils % 0.8 %; Nucleated Red Blood Cells 0.4 /100 WBC (0)
[2020-06-18 09:53] LABS: Basophils # 0.1 K/mcL (0.0-0.2); Eosinophils # 0.5 K/mcL (0.0-0.6); Eosinophils % 4.6 %; Hematocrit 30.6 % (35.3-44.9); Hemoglobin 8.6 g/dL (11.5-15.4); Immature Granulocytes % 2.3 % (0-4); Lymphocytes # 2.8 K/mcL (0.6-4.6); Lymphocytes % 23.5 %; Mean Corpuscular HGB Conc 28.1 g/dL (31.6-35.5); Mean Corpuscular Hemoglobin 20.1 pg (28.0-33.3); Mean Corpuscular Volume 71.5 fL (83.0-100.0); Monocytes # 0.8 K/mcL (0.0-1.3); Monocytes % 6.8 %; Neutrophils # 7.3 K/mcL (1.6-8.9); Platelet Count 409 K/mcL (140-400); Red Blood Count 4.28 M/mcL (3.82-4.97); Red Cell Distribution Width 18.7 % (11.5-14.5); White Blood Count 11.8 K/mcL (4.3-11.1)
[2020-06-18 10:17] LABS: Anisocytosis 1+ (Not Present); Hypochromasia Present (Not Present); Microcytosis Present (Not Present); Platelet Estimate Normal (Normal)
[2020-06-18 10:31] LABS: BUN/Creatinine Ratio 14 (6-26); Blood Urea Nitrogen 9 mg/dL (6-20); Calcium 9.1 mg/dL (8.6-10.3); Carbon Dioxide 22 mEq/L (23-29); Chloride 103 mEq/L (98-107); Glucose 139 mg/dL (70-105); Osmolality,Calculated 281 (280-300); Potassium 3.5 mEq/L (3.5-5.1); Sodium 135 mEq/L (136-145); eGFR For African Americans > 60 (> 60); eGFR For Non-African Americans > 60 (> 60)
[2020-06-18 10:33] LABS: Acetaminophen < 10 mcg/mL (10-20); Ethanol < 10 mg/dL (Less than 10); Salicylate < 2.5 mg/dL (15.0-30.0)
[2020-06-18 10:51] LABS: Bacteria,Urine Few per hpf (None-Few); Bilirubin,Urine Negative (Negative); Blood,Urine Small (Negative); Clarity,Urine Turbid (Clear); Color,Urine Yellow (Yellow); Glucose,Urine (UA) Normal (Normal); Ketones,Urine Negative (Negative); Leukocyte Esterase,Urine Large (Negative); Mucus,Urine Few per lpf (None-Few); Nitrite,Urine Positive (Negative); PH,Urine 5.5 pH Units (5.0-8.0); Protein,Urine 30 mg/dL (Neg-Trace); Specific Gravity,Urine 1.026 (1.010-1.025); Squamous Epithelial Cell,Urine Few per hpf (None-Few); Urobilinogen,Urine Normal (Normal); WBC,Urine TNTC per hpf (0-3)
[2020-06-18 10:53] LABS: Amphetamine Screen,Urine Negative ng/mL (Cutoff=1000); Barbiturate Screen,Urine Negative ng/mL (Cutoff=200); Benzodiazepines Screen,Urine Negative ng/mL (Cutoff=200); Cannabinoid Screen,Urine Negative ng/mL (Cutoff = 50); Cocaine Screen,Urine Negative ng/mL (Cutoff= 300); Opiate Screen,Urine Negative ng/mL (Cutoff=300); Phencyclidine Screen,Urine Negative ng/mL (Cutoff=25)
[2020-06-18] MEDS ORDERED: haloperidoL 5 MG TABLET PO PRN (14:20)
[2020-06-18] MEDS ORDERED: Haloperidol Lactate 5 MG/ML VIAL IM PRN (14:20)
[2020-06-18] MEDS ORDERED: *HR* LORazepam 1 MG TABLET PO PRN (14:20)
[2020-06-18] MEDS ORDERED: Acetaminophen 325 MG TABLET PO PRN (14:20)
[2020-06-18] MEDS ORDERED: *HR* LORazepam 2 MG/ML VIAL IM PRN (14:20)
[2020-06-18] MEDS ORDERED: MOM Conc 10 ML UD.LIQ PO PRN (14:20)
[2020-06-18] MEDS: traZODone 50 MG TABLET PO PRN (21:27)
[2020-06-18] MEDS: hydrOXYzine pamoate 25 MG CAPSULE PO PRN (21:28)
[2020-06-18] MEDS: ARIPiprazole 10 MG TABLET PO SCH (21:28)
[2020-06-19] MEDS: Levothyroxine 25 MCG TABLET PO SCH (05:41)
[2020-06-19] MEDS: BuPROPion XL (24 HR) 150 MG TABLET PO SCH (11:20)
[2020-06-19] MEDS: traZODone 50 MG TABLET PO PRN (20:16)
[2020-06-19] MEDS: hydrOXYzine pamoate 25 MG CAPSULE PO PRN (20:16)
[2020-06-19] MEDS: ARIPiprazole 10 MG TABLET PO SCH (20:16)
[2020-06-20] MEDS: Levothyroxine 25 MCG TABLET PO SCH (06:01)
[2020-06-20] MEDS: BuPROPion XL (24 HR) 150 MG TABLET PO SCH (08:41)
[2020-06-20] MEDS: ARIPiprazole 10 MG TABLET PO SCH (20:44)
[2020-06-20] MEDS: traZODone 50 MG TABLET PO PRN (20:44)
[2020-06-20] MEDS: hydrOXYzine pamoate 25 MG CAPSULE PO PRN (20:44)
[2020-06-21] MEDS: Levothyroxine 25 MCG TABLET PO SCH (06:05)
[2020-06-21] MEDS: BuPROPion XL (24 HR) 150 MG TABLET PO SCH (08:11)
[2020-06-21] MEDS: hydrOXYzine pamoate 25 MG CAPSULE PO PRN (20:38)
[2020-06-21] MEDS: ARIPiprazole 10 MG TABLET PO SCH (20:38)
[2020-06-21] MEDS: traZODone 50 MG TABLET PO PRN (20:39)
[2020-06-22] MEDS: Mag Hydrox/Al Hydrox/Simeth 30 ML UDC PO PRN (04:37)
[2020-06-22] MEDS: Levothyroxine 25 MCG TABLET PO SCH (06:46)
[2020-06-22] MEDS: BuPROPion XL (24 HR) 150 MG TABLET PO SCH (09:07)
[2020-06-22] MEDS: hydrOXYzine pamoate 25 MG CAPSULE PO PRN (20:44)
[2020-06-22] MEDS: ARIPiprazole 10 MG TABLET PO SCH (20:44)
[2020-06-22] MEDS: traZODone 50 MG TABLET PO PRN (20:44)
[2020-06-23] MEDS: Levothyroxine 25 MCG TABLET PO SCH (06:23)
[2020-06-23] MEDS: BuPROPion XL (24 HR) 150 MG TABLET PO SCH (08:50)
[2020-06-23 09:33] LABS: Nucleated Red Blood Cells 0.5 /100 WBC (0)
[2020-06-23 09:34] LABS: Hematocrit 31.9 % (35.3-44.9); Hemoglobin 8.7 g/dL (11.5-15.4); Mean Corpuscular HGB Conc 27.3 g/dL (31.6-35.5); Mean Corpuscular Hemoglobin 20.3 pg (28.0-33.3); Mean Corpuscular Volume 74.4 fL (83.0-100.0); Mean Platelet Volume 10.2 fL (9.4-12.4); Platelet Count 341 K/mcL (140-400); Red Blood Count 4.29 M/mcL (3.82-4.97); Red Cell Distribution Width 20.8 % (11.5-14.5); White Blood Count 15.3 K/mcL (4.3-11.1)
[2020-06-23 09:50] LABS: Alanine Aminotransferase 55 Units/L (7-52); Albumin 4.2 g/dL (3.5-5.7); Albumin/Globulin Ratio 1.3 (1.1-2.2); Alkaline Phosphatase 103 Units/L (34-104); Aspartate Amino Transferase 38 Units/L (13-39); BUN/Creatinine Ratio 14 (6-26); Bilirubin,Total 0.5 mg/dL (0.3-1.0); Blood Urea Nitrogen 12 mg/dL (6-20); Calcium 9.4 mg/dL (8.6-10.3); Carbon Dioxide 26 mEq/L (23-29); Chloride 102 mEq/L (98-107); Globulin 3.3 g/dL (2.4-3.5); Glucose 221 mg/dL (70-105); Lymphocytes # 3.7 K/mcL (0.6-4.6); Monocytes # 0.6 K/mcL (0.0-1.3); Osmolality,Calculated 289 (280-300); Platelet Estimate Normal (Normal); Potassium 3.8 mEq/L (3.5-5.1); Sodium 136 mEq/L (136-145); Total Protein 7.5 g/dL (6.4-8.9); eGFR For African Americans > 60 (> 60); eGFR For Non-African Americans > 60 (> 60)
[2020-06-23 09:51] LABS: Anisocytosis 1+ (Not Present); Hypochromasia Present (Not Present); Poikilocytosis 1+ (Not Present)
[2020-06-23 10:02] LABS: Thyroid Stimulating Hormone 3.758 mcIU/mL (0.340-5.600)
[2020-06-23] MEDS: Mag Hydrox/Al Hydrox/Simeth 30 ML UDC PO PRN (21:17)
[2020-06-23] MEDS: traZODone 50 MG TABLET PO PRN (21:18)
[2020-06-23] MEDS: ARIPiprazole 10 MG TABLET PO SCH (21:18)
[2020-06-23] MEDS: hydrOXYzine pamoate 25 MG CAPSULE PO PRN (21:18)
[2020-06-24] MEDS: Levothyroxine 25 MCG TABLET PO SCH (06:08)
[2020-06-24] MEDS: BuPROPion XL (24 HR) 150 MG TABLET PO SCH (08:48)
[2020-06-24] MEDS: traZODone 50 MG TABLET PO PRN (21:40)
[2020-06-24] MEDS: ARIPiprazole 10 MG TABLET PO SCH (21:40)
[2020-06-24] MEDS: hydrOXYzine pamoate 25 MG CAPSULE PO PRN (21:40)
[2020-06-25] MEDS: Levothyroxine 25 MCG TABLET PO SCH (07:24)
[2020-06-25] MEDS: BuPROPion XL (24 HR) 150 MG TABLET PO SCH (09:07)
[2020-06-25 09:11] VITALS: BP 118/72
== END 2020-06-25 12:00 | disposition home or self-care (01) | DRG 753 ==
LOC: EMEROOARM 09:16 → 1ANU 13:39
PROVIDERS: ADMIT Psychiatry & Neurology Psychiatry; ATTEND Psychiatry & Neurology Psychiatry